=== PATIENT | male | born 1975 | race Caucasian/White ===

== ENCOUNTER 2018-08-29 09:39 | Day surgery (SDC) | payer MEDICARE, BC ==
--- NOTE | 2018-08-29 08:11 | HP ---
DATE OF SURGERY: 08/29/2018 HISTORY OF PRESENT ILLNESS: The patient is a 43 year-old with some increased aches and pain over posterior left leg question cyst or other etiology. Desires excision. PAST MEDICAL HISTORY: Glaucoma. Hypertension. Diabetes. PAST SURGICAL HISTORY: Tip of the finger removed. Tonsils. MEDICATIONS: Enalapril, benztropine, haloperidol, lorazepam, escitalopram, Metformin, gemfibrozil, paliperidone extended release, Tamsulosin, Humalog, tolterodine, simvastatin, divalproex. ALLERGIES: SULFA. FAMILY HISTORY: Heart disease, diabetes, hypertension. SOCIAL HISTORY: No smoking or alcohol abuse. REVIEW OF SYSTEMS: Twelve systems reviewed per admission assessment. No chest pain or palpitations other systems negative or noncontributory as above and per preadmission questionnaire. PHYSICAL EXAMINATION: GENERAL: No acute distress. HEENT: Sclerae nonicteric. NECK: No JVD. CHEST: Equal excursion, nonlabored breathing. CVS: Regular rate and rhythm. ABDOMEN: Soft, nondistended. EXTREMITIES: Posterior upper leg question cyst or other nodule. Patient desires excision. Otherwise no cyanosis. NEURO: Alert, oriented, moving extremities symmetrically. IMPRESSION: Enlarging, symptomatic left lower leg cyst or nodule. The patient desires excision. I feel he is a candidate. Risks and benefits explained in detail including but not limited to bleeding or infection, risk of wound dehiscence possibly requiring packing, general risk of aches or pains, risk of nonhealing of the wound, possibility of what we excise likely will not recur but he could get similar cyst or nodule adjacent to or elsewhere on his body. He understands and agrees to the planned procedure as well as general risk of anesthesia, deep venous thrombosis, pulmonary embolism, pneumonia but not limited to, will proceed with excisional biopsy of left leg cyst or nodule as an outpatient.
[~2018-08-29 09:39] MED LIST: Lactated Ringers 1,000 ML IV ONE; Lactated Ringers 1,000 ML IV SCH; Pepcid 20 MG VIAL IV ONE; Reglan 10 MG/2 ML ONE; Sensorcaine 0.25% 10 ML ONE; Sodium Chloride 0.9% 1000 ML 1,000 ML IV SCH
[2018-08-29] MEDS ORDERED: DIPRIVAN 200 MG/20 ML IV ONE (09:40)
[2018-08-29] MEDS ORDERED: VERSED SYRUP 2 MG/ML PO ONE (10:03)
[2018-08-29] MEDS ORDERED: KEFZOL 1 GM ONE (10:59)
[2018-08-29 12:59] VITALS: O2SAT 96
[2018-08-29 13:17] VITALS: BP 102/51; PULSE 77
--- NOTE | 2018-08-30 07:52 | OP ---
SURGERY DATE/TIME: 08/29/2018 1135 PREOPERATIVE DIAGNOSIS: Persistent nodular cyst left lower extremity. POSTOPERATIVE DIAGNOSIS: Persistent nodular cyst left lower extremity, path pending. PROCEDURE: Excisional biopsy left lower extremity nodule or lipoma, path pending. SURGEON: Dr. Amaury Thakkar. ANESTHESIA: MAC. 1% lidocaine local. ESTIMATED BLOOD LOSS: Minimal. INDICATIONS: As noted above. Risks and benefits explained in detail and not limited to and consent obtained. DESCRIPTION OF PROCEDURE AND FINDINGS: The patient is taken to the operating room. Site had been confirmed and marked in the preoperative holding area. He was taken to OR. MAC anesthesia introduced. The leg prepped and draped in usual sterile fashion. Lateral position. Appropriate padding position per anesthesia and OR staff. The leg was prepped and draped in usual sterile fashion. After official time out and no disagreement with planned procedure, including a small rim of skin dissection carried circumferentially around deep to what appeared to be kind of a denser lipomatous-type density rather than just a simple cyst, this is carefully dissected off normal subcutaneous tissue and veins beneath. It is carefully passed off. It measured 1 x 1.5 cm or so, passed off for pathology. There is another small adjacent denser lipomatous density carefully freed and passed off as well. There is no other palpable nodule, cyst or any other nodules in the wound. The wound is irrigated out. Good hemostasis noted. It was then closed in layers intermediate fashion 3-0 Vicryl closing the deep and superficial subcu in interrupted fashion. Skin closed with 4-0 Vicryl running subcuticular fashion. Steri-Strips and sterile dressing applied. Patient tolerated the procedure well. There were no immediate complications. Findings discussed with the family out in the waiting area.
== END 2018-08-29 13:20 | disposition home or self-care (01) ==
LOC: SDC 09:39
PROVIDERS: ATTEND Surgery
DX: R22.42 Localized swelling, mass and lump, left lower limb (principal); L98.9 Disorder of the skin and subcutaneous tissue, unspecified; E11.9 Type 2 diabetes mellitus without complications; I10 Essential (primary) hypertension; Z79.899 Other long term (current) drug therapy
CPT/HCPCS: 82962; 88304; 88305; J0690; J2704; A9270-GY

== ENCOUNTER 2021-05-28 20:01 | Observation (INO) | payer MEDICARE, BC ==
[2021-05-28 20:39] LABS: Absolute Neutrophil Ct (ANC) 3.81 (1.4-6.9); BASOPHIL % 0.2 % (0.0-0.4); Basophil (Absolute #) 0.02 (0-0.4); Eosinophil % 2.9 % (0.00-5.0); Eosinophil (Absolute #) 0.24 (0-0.5); Hematocrit 35.8 % (42-50); Hemoglobin 12.9 gm/dl (12.5-18.0); Lymphocyte (Absolute #) 3.46 (1.0-4.6); Lymphocytes % 41.6 % (24.0-44.0); Mean Cell Volume 85.2 fl (78-100); Mean Corpuscular Hemoglobin 30.7 pg (26-32); Mean Platelet Volume 9.5 fl (7.5-11.0); Monocyte (Absolute #) 0.78 (0.0-1.3); Monocytes % 9.4 % (0.0-12.0); Neutrophil % 45.9 % (36.0-66.0); Platelet Count 268 K/mm3 (150-450); Red Cell Distribution Width 12.3 % (11.5-14.0); White Blood Count 8.3 K/mm3 (4.0-10.5)
[2021-05-28 20:49] LABS: ALBUMIN 4.4 g/dL (3.5-5.0); ALKALINE PHOSPHATASE 37 U/L (38-126); ANION GAP 14.5 MEQ/L (5-15); BLOOD UREA NITROGEN 4 mg/dL (9-20); CHLORIDE 89 mmol/L (98-107); Carbon Dioxide 24 mmol/L (22-30); Creatinine 1 0.58 mg/dL (0.66-1.25); EST GLOMERULAR FILTRATION RATE > 60.0 ML/MIN; Glucose 116 mg/dL (74-106); Potassium 4.3 mmol/L (3.5-5.1); SGOT/AST 27 U/L (17-59); SGPT/ALT 24 U/L (0-50); SODIUM 124 mmol/L (137-145); Total Protein 6.3 g/dL (6.3-8.2)
--- NOTE | 2021-05-28 20:50 | ERPHSYRPT ---
- History of Present Illness Time Seen by Provider: 05/28/21 20:10 Source: patient Exam Limitations: no limitations Patient Subjective Stated Complaint: pt mother states "He had labs drawn today and they told come to the hospital." Triage Nursing Assessment: pt ambulated into the er; pt is axo x1; c/o abnormal labs; mother states that pt had lab drawn today and derrick man office called and told pt to get to the nearest hospital; pt is sob with ambulation; mother states this is new for pt; mother states that pt has increased oral fluid intake lately; hypertensive Physician History: Patient is a 46-year-old male presents to our ED with his mother for evaluation of hyponatremia. Patient has a history of autism. Patient had outpatient labs drawn. He was found to be hyponatremic. Patient's derrick man Dr. SEGURA advised mother to bring patient to the hospital for an evaluation and treatment of hyponatremia. Patient otherwise been functioning at his baseline. Patient has not been complaining of any pain or discomfort. RN reports that patient looks somewhat winded during ambulation. Patient does not complain of any chest pain or shortness of breath. Oxygen saturation within normal limits. Timing/Duration: today Severity: moderate Modifying Factors: Improves With: nothing Associated Symptoms: denies symptoms Allergies/Adverse Reactions: Sulfa (Sulfonamide Antibiotics) Allergy (Mild, Verified 05/28/21 20:07) Hives bee venom protein (honey bee) Allergy (Verified 05/28/21 20:07) Home Medications: Bimatoprost 0.01% [Lumigan 0.01% 2.5 ml] 1 drop OP 11/03/13 [History] Divalproex Sodium [Depakote ER] 2 tab PO 11/03/13 [History] Enalapril Maleate 5 mg [Vasotec 5 MG] 40 mg PO DAILY 11/03/13 [History] Escitalopram Oxalate [Lexapro] 10 mg PO QAM 11/03/13 [History] Gemfibrozil 600 mg [Lopid 600 mg] 600 mg PO BID 11/03/13 [History] Haloperidol 5 mg [Haldol 5 MG] 10 mg PO HS 11/03/13 [History] Insulin Lispro [Humalog] 13 units SQ AC 11/03/13 [History] Lorazepam 1 mg [Ativan 1 MG] 1 mg PO TID 11/03/13 [History] Metformin HCl 850 mg [Glucophage 850 MG] 850 mg PO BID 11/03/13 [History] Benztropine Mesylate 1 mg PO BID 08/13/18 [History] Insulin Glargine,Hum.rec.anlog [Lantus] 35 unit SQ BID 08/13/18 [History] Simvastatin [Zocor] 40 mg PO HS 08/13/18 [History] Tamsulosin HCl 0.4 mg [Flomax 0.4 MG] 0.4 mg PO HS 08/13/18 [History] Tolterodine Tartrate 2 mg PO AC 08/13/18 [History] Demeclocycline HCl 300 mg PO BID 05/28/21 [History] Doxepin HCl 50 mg PO HS 05/28/21 [History] haloperidoL [Haloperidol] 5 mg PO AC 05/28/21 [History] Hx Tetanus, Diphtheria Vaccination/Date Given: Yes Hx Influenza Vaccination/Date Given: No Hx Pneumococcal Vaccination/Date Given: No Travel Risk - International Travel Have you traveled outside of the country in past 3 weeks: No - Coronavirus Screening Symptoms: Cough: New Onset, Shortness of Breath, Vomiting/Diarrhea Close contact with a COVID-19 positive Pt in past 14-21 Days: No - Vaccine Status Have you recieved a Covid-19 vaccination: Yes [employer]: Moderna - Vaccination Dates Date of 2cond Vaccination (if applicable): 09/11/20 - Review of Systems Constitutional: No Symptoms, No Fever, No Chills Eyes: No Symptoms Ears, Nose, & Throat: No Symptoms Respiratory: No Symptoms, No Cough, No Dyspnea Cardiac: No Symptoms, No Chest Pain, No Edema, No Syncope Abdominal/Gastrointestinal: No Symptoms, No Abdominal Pain, No Nausea, No Vomiting, No Diarrhea Genitourinary Symptoms: No Symptoms, No Dysuria Musculoskeletal: No Symptoms, No Back Pain, No Neck Pain Skin: No Symptoms, No Rash Neurological: No Symptoms, No Dizziness, No Focal Weakness, No Sensory Changes Psychological: No Symptoms Endocrine: No Symptoms Hematologic/Lymphatic: No Symptoms Immunological/Allergic: No Symptoms All Other Systems: Reviewed and Negative - Past Medical History Pertinent Past Medical History: Yes Neurological History: Other ENT History: Glaucoma Cardiac History: Hypertension Respiratory History: Sleep Apnea Endocrine Medical History: Diabetes Type II Musculoskeletal History: No Pertinent History GI Medical History: No Pertinent History History: No Pertinent History Psycho-Social History: Other Male Reproductive Disorders: No Pertinent History Other Medical History: AUTISM. refuses c-pap - Past Surgical History Past Surgical History: Yes Neuro Surgical History: No Pertinent History Cardiac: No Pertinent History Respiratory: No Pertinent History Gastrointestinal: No Pertinent History Genitourinary: No Pertinent History Musculoskeletal: No Pertinent History Male Surgical History: No Pertinent History Other Surgical History: TONSILECTOMY. tip of finger removed right hand. cyst removed from behind left knee - Social History Smoking Status: Never smoker Exposure to second hand smoke: No Drug Use: none Patient Lives Alone: No - Nursing Vital Signs Nursing Vital Signs: Initial Vital Signs Temperature 99 F 05/28/21 20:07 Pulse Rate 88 05/28/21 20:07 Respiratory Rate 24 05/28/21 20:07 Blood Pressure 143/96 05/28/21 20:07 O2 Sat by Pulse Oximetry 97 05/28/21 20:07 Pain Scale Pain Intensity 0 - Physical Exam General Appearance: no apparent distress, alert Eye Exam: PERRL/EOMI, eyes nml inspection Ears, Nose, Throat Exam: normal ENT inspection, TMs normal, pharynx normal, moist mucous membranes Neck Exam: normal inspection, non-tender, supple, full range of motion Respiratory Exam: normal breath sounds, lungs clear, airway intact, No respiratory distress Cardiovascular Exam: regular rate/rhythm, normal heart sounds, normal peripheral pulses Gastrointestinal/Abdomen Exam: soft, normal bowel sounds, No tenderness, No mass Back Exam: normal inspection, normal range of motion, No CVA tenderness, No vertebral tenderness Extremity Exam: normal inspection, normal range of motion, pelvis stable Neurologic Exam: alert (Patient has a history of autism and is listening answers to questions is difficult. However patient appears to be functioning at his baseline per his mother who is also his primary caregiver), cooperative, normal mood/affect, sensation nml, No motor deficits Skin Exam: normal color, warm, dry, No rash Lymphatic Exam: No adenopathy SpO2 Interpretation: normal SpO2: 97 O2 Delivery: Room Air - Course Nursing assessment & vital signs reviewed: Yes - Radiology Exams Chest X-ray Interpretation: Interpreted by me (Focal eventration of right hemidiaphragm. Heart lungs and bony thorax otherwise intact.) Ordered Tests: Active Orders 24 hr Category Date Time Status Iv Rn STAT Care 05/28/21 20:23 Active Pulse Oximetry (ED) STAT Care 05/28/21 20:22 Active CHEST 1 VIEW (PORTABLE) Stat Exams 05/28/21 21:26 Taken CBC W DIFF Stat Lab 05/28/21 20:15 Completed CMP Stat Lab 05/28/21 20:15 Completed UA W/RFX UR CULTURE Stat Lab 05/28/21 20:59 Completed Medication Summary Generic Name Dose Route Start Last Admin Trade Name Freq PRN Reason Stop Dose Admin Sodium Chloride 1,000 mls @ 100 mls/hr 05/28/21 21:30 05/28/21 21:25 Sodium Chloride 0.45% 1000 Ml IV 06/27/21 21:29 100 mls/hr .Q10H MISHEL Administration Discontinued Medications Generic Name Dose Route Start Last Admin Trade Name Freq PRN Reason Stop Dose Admin Sodium Chloride Confirm 05/28/21 21:18 Sodium Chloride 0.9% 1000 Ml Administered 05/28/21 21:19 Dose 1,000 mls @ ud .ROUTE .STK-MED ONE Oral Electrolytes 1,000 ml 05/28/21 21:28 05/28/21 21:29 Electrolyte,Oral 1000 Ml Bottle (Pedialyte) PO 05/28/21 21:29 1,000 ml STAT ONE Administration Oral Electrolytes Confirm 05/28/21 21:29 Electrolyte,Oral 1000 Ml Bottle (Pedialyte) Administered 05/28/21 21:30 Dose 1,000 ml .ROUTE .STK-MED ONE Lab/Rad Data: Laboratory Result Diagrams 05/28/21 20:15 05/28/21 20:15 Laboratory Results 05/28/21 05/28/21 05/28/21 Range/Units 21:37 20:59 20:15 WBC (4.0-10.5) K/mm3 RBC (4.1-5.6) M/mm3 Hgb (12.5-18.0) gm/dl Hct (42-50) % MCV (78-100) fl MCH (26-32) pg MCHC (32-36) g/dl RDW (11.5-14.0) % Plt Count (150-450) K/mm3 MPV (7.5-11.0) fl Gran % (36.0-66.0) % Eos # (Auto) (0-0.5) Absolute Lymphs (auto) (1.0-4.6) Absolute Monos (auto) (0.0-1.3) Lymphocytes % (24.0-44.0) % Monocytes % (0.0-12.0) % Eosinophils % (0.00-5.0) % Basophils % (0.0-0.4) % Absolute Granulocytes (1.4-6.9) Basophils # (0-0.4) Sodium 124 L (137-145) mmol/L Potassium 4.3 (3.5-5.1) mmol/L Chloride 89 L (98-107) mmol/L Carbon Dioxide 24 (22-30) mmol/L Anion Gap 14.5 (5-15) MEQ/L BUN 4 L (9-20) mg/dL Creatinine 0.58 L (0.66-1.25) mg/dL Estimated GFR > 60.0 ML/MIN Glucose 116 H (74-106) mg/dL Calcium 9.0 (8.4-10.2) mg/dL Total Bilirubin 0.50 (0.2-1.3) mg/dL AST 27 (17-59) U/L ALT 24 (0-50) U/L Alkaline Phosphatase 37 L (38-126) U/L Serum Total Protein 6.3 (6.3-8.2) g/dL Albumin 4.4 (3.5-5.0) g/dL Urine Color STRAW (YELLOW) Urine Appearance CLEAR (CLEAR) Urine pH 8.0 (5-6) Ur Specific [place] 1.002 (1.005-1.025) Urine Protein NEGATIVE (Negative) Urine Ketones NEGATIVE (NEGATIVE) Urine Blood NEGATIVE (0-5) Wes/ul Urine Nitrite NEGATIVE (NEGATIVE) Urine Bilirubin NEGATIVE (NEGATIVE) Urine Urobilinogen NEGATIVE (0-1) mg/dL Ur Leukocyte Esterase NEGATIVE (NEGATIVE) Urine WBC (Auto) NONE SEEN (0-5) /HPF Urine RBC (Auto) NONE SEEN (0-2) /HPF U Epithel Cells (Auto) NONE (FEW) /HPF Urine Bacteria (Auto) NONE SEEN (NEGATIVE) /HPF Urine Mucus (Auto) SLIGHT (NEGATIVE) /HPF Urine Culture Reflexed NO (NO) Urine Glucose NEGATIVE (NEGATIVE) mg/dL Influenza Type A Ag NEGATIVE (NEGATIVE) Influenza Type B Ag NEGATIVE (NEGATIVE) RSV (PCR) NEGATIVE (Negative) SARS-CoV-2 (PCR) NEGATIVE (NEGATIVE) 05/28/21 Range/Units 20:15 WBC 8.3 (4.0-10.5) K/mm3 RBC 4.20 (4.1-5.6) M/mm3 Hgb 12.9 (12.5-18.0) gm/dl Hct 35.8 L (42-50) % MCV 85.2 (78-100) fl MCH 30.7 (26-32) pg MCHC 36.0 (32-36) g/dl RDW 12.3 (11.5-14.0) % Plt Count 268 (150-450) K/mm3 MPV 9.5 (7.5-11.0) fl Gran % 45.9 (36.0-66.0) % Eos # (Auto) 0.24 (0-0.5) Absolute Lymphs (auto) 3.46 (1.0-4.6) Absolute Monos (auto) 0.78 (0.0-1.3) Lymphocytes % 41.6 (24.0-44.0) % Monocytes % 9.4 (0.0-12.0) % Eosinophils % 2.9 (0.00-5.0) % Basophils % 0.2 (0.0-0.4) % Absolute Granulocytes 3.81 (1.4-6.9) Basophils # 0.02 (0-0.4) Sodium (137-145) mmol/L Potassium (3.5-5.1) mmol/L Chloride (98-107) mmol/L Carbon Dioxide (22-30) mmol/L Anion Gap (5-15) MEQ/L BUN (9-20) mg/dL Creatinine (0.66-1.25) mg/dL Estimated GFR ML/MIN Glucose (74-106) mg/dL Calcium (8.4-10.2) mg/dL Total Bilirubin (0.2-1.3) mg/dL AST (17-59) U/L ALT (0-50) U/L Alkaline Phosphatase (38-126) U/L Serum Total Protein (6.3-8.2) g/dL Albumin (3.5-5.0) g/dL Urine Color (YELLOW) Urine Appearance (CLEAR) Urine pH (5-6) Ur Specific [place] (1.005-1.025) Urine Protein (Negative) Urine Ketones (NEGATIVE) Urine Blood (0-5) Wes/ul Urine Nitrite (NEGATIVE) Urine Bilirubin (NEGATIVE) Urine Urobilinogen (0-1) mg/dL Ur Leukocyte Esterase (NEGATIVE) Urine WBC (Auto) (0-5) /HPF Urine RBC (Auto) (0-2) /HPF U Epithel Cells (Auto) (FEW) /HPF Urine Bacteria (Auto) (NEGATIVE) /HPF Urine Mucus (Auto) (NEGATIVE) /HPF Urine Culture Reflexed (NO) Urine Glucose (NEGATIVE) mg/dL Influenza Type A Ag (NEGATIVE) Influenza Type B Ag (NEGATIVE) RSV (PCR) (Negative) SARS-CoV-2 (PCR) (NEGATIVE) - Progress Progress: improved Progress Note: Patient is hyponatremic. It is likely due to dilution from polydipsia. I spoke to Dr. Nye who feels that patient would be appropriate for discharge as long as he decreases his intake of water. Patient's mother is the primary provider. She states that she does not feel comfortable with this plan. She states that she will not be able to stop patient from drinking water at home. We will perform a Covid test admit patient to our hospital. 05/28/21 21:22 Covid test negative. Will admit to floor. Portions of this note were created with voice recognition technology. There may be grammatical, spelling, punctuation or sound alike errors 05/28/21 22:49 Discussed with : Gianni Will see patient in: hospital (observation) Counseled pt/family regarding: lab results, diagnosis - Departure Departure Disposition: Observation Clinical Impression: Hyponatremia, Polydipsia Condition: Stable Critical Care Time: No Referrals: ROLANDO GARZA [Primary Care Provider] - Follow up/PCP as directed
[2021-05-28 21:16] LABS: Appearance CLEAR (CLEAR); Bilirubin NEGATIVE (NEGATIVE); Blood NEGATIVE Ery/ul (0-5); Glucose NEGATIVE (NEGATIVE); Ketones NEGATIVE (NEGATIVE); Leukocyte Esterase NEGATIVE (NEGATIVE); Mucus SLIGHT /HPF (NEGATIVE); Nitrite NEGATIVE (NEGATIVE); Protein,Urine Dip NEGATIVE (Negative); Specific Gravity 1.002 (1.005-1.025); Urobilinogen NEGATIVE mg/dL (0-1)
[2021-05-28] MEDS ORDERED: Sodium Chloride 0.9% 1000 ML 0 ML ONE (21:18)
[2021-05-28 21:26] LABS: Bacteria NONE SEEN /HPF (NEGATIVE); RBC NONE SEEN /HPF (0-2); WBC NONE SEEN /HPF (0-5)
[2021-05-28] MEDS ORDERED: Pedialyte PO ONE (21:28)
[2021-05-28] MEDS ORDERED: Pedialyte ONE (21:29)
[2021-05-28 22:39] LABS: INFLUENZA A NEGATIVE (NEGATIVE); INFLUENZA B NEGATIVE (NEGATIVE); RESPIRATORY SYNCTIAL VIRUS NEGATIVE (Negative); SARS-CoV-2 Xpert Express NEGATIVE (NEGATIVE)
[2021-05-28] MEDS ORDERED: MORPHINE SULFATE 2 MG INJ IV PRN (22:57)
[2021-05-29 06:02] LABS: Absolute Neutrophil Ct (ANC) 2.66 (1.4-6.9); BASOPHIL % 0.5 % (0.0-0.4); Basophil (Absolute #) 0.03 (0-0.4); Eosinophil (Absolute #) 0.19 (0-0.5); Hematocrit 38.2 % (42-50); Hemoglobin 13.3 gm/dl (12.5-18.0); Lymphocyte (Absolute #) 2.93 (1.0-4.6); Lymphocytes % 45.6 % (24.0-44.0); Mean Cell Volume 87.6 fl (78-100); Mean Corpuscular Hemoglobin 30.5 pg (26-32); Mean Corpuscular Hgb Concent. 34.8 g/dl (32-36); Mean Platelet Volume 9.5 fl (7.5-11.0); Monocyte (Absolute #) 0.61 (0.0-1.3); Monocytes % 9.5 % (0.0-12.0); Neutrophil % 41.4 % (36.0-66.0); Platelet Count 277 K/mm3 (150-450); Red Blood Count 4.36 M/mm3 (4.1-5.6); Red Cell Distribution Width 12.7 % (11.5-14.0); White Blood Count 6.4 K/mm3 (4.0-10.5)
[2021-05-29 06:48] LABS: ALBUMIN 4.1 g/dL (3.5-5.0); ALKALINE PHOSPHATASE 35 U/L (38-126); BLOOD UREA NITROGEN 6 mg/dL (9-20); CHLORIDE 98 mmol/L (98-107); Calcium 8.5 mg/dL (8.4-10.2); Carbon Dioxide 26 mmol/L (22-30); Creatinine 1 0.52 mg/dL (0.66-1.25); EST GLOMERULAR FILTRATION RATE > 60.0 ML/MIN; Glucose 119 mg/dL (74-106); Potassium 4.4 mmol/L (3.5-5.1); SGOT/AST 28 U/L (17-59); SGPT/ALT 25 U/L (0-50); SODIUM 131 mmol/L (137-145); Total Protein 6.2 g/dL (6.3-8.2)
[2021-05-29] MEDS: Sodium Chloride 0.9% 1000 ML 1,000 ML IV SCH ×2 (07:10→16:29)
[2021-05-29] MEDS ORDERED: Sodium Chloride 0.9% 1000 ML 1,000 ML ONE (07:11)
--- NOTE | 2021-05-29 08:45 | PCM.HP ---
History of Present Illness - Chief Complaint Chief Complaint: hyponatremia History of Present Illness: is a 46 year old male with a history of autism that was seen by Dr Stubbs and had labs yesterday, his sodium was 124 and he was directed to the ER. History is limited from [place] due to severe autism but he is in no distress and cooperative this morning, his mother is his primary caregiver and she notes no changes from baseline, he does not seem to have any headache, visual changes or other complaints related to his low sodium. He has psychogenic polydipsia and drinks water excessively according to his mother. - Review of Systems All Other Systems: Unable due to condition Medications & Allergies Home Medications: Home Medication List Bimatoprost 0.01% [Lumigan 0.01% 2.5 ml] 1 drop OP HS 11/03/13 [History Confirmed 05/28/21] Divalproex Sodium [Depakote ER] 2 tab PO HS 11/03/13 [History Confirmed 05/28/21] Enalapril Maleate 5 mg [Vasotec 5 MG] 40 mg PO DAILY 11/03/13 [History C onfirmed 05/28/21] Escitalopram Oxalate [Lexapro] 10 mg PO QAM 11/03/13 [History Confirmed 05/28/21] Gemfibrozil 600 mg [Lopid 600 mg] 600 mg PO BID 11/03/13 [History Confirmed 05/28/21] Haloperidol 5 mg [Haldol 5 MG] 10 mg PO HS 11/03/13 [History Confirmed 05/28/21] Insulin Lispro [Humalog] 13 units SQ AC 11/03/13 [History Confirmed 05/28/21] Lorazepam 1 mg [Ativan 1 MG] 1 mg PO TID 11/03/13 [History Confirmed 05/28/21] Metformin HCl 850 mg [Glucophage 850 MG] 850 mg PO BID 11/03/13 [History Confirmed 05/28/21] Benztropine Mesylate 1 mg PO BID 08/13/18 [History Confirmed 05/28/21] Insulin Glargine,Hum.rec.anlog [Lantus] 35 unit SQ BID 08/13/18 [History Confirmed 05/28/21] Simvastatin [Zocor] 40 mg PO HS 08/13/18 [History Confirmed 05/28/21] Tamsulosin HCl 0.4 mg [Flomax 0.4 MG] 0.4 mg PO HS 08/13/18 [History Confirmed 05/28/21] Tolterodine Tartrate 2 mg PO AC 08/13/18 [History Confirmed 05/28/21] Demeclocycline HCl 300 mg PO BID 05/28/21 [History Confirmed 05/28/21] Doxepin HCl 50 mg PO HS 05/28/21 [History Confirmed 05/28/21] haloperidoL [Haloperidol] 5 mg PO AC 05/28/21 [History Confirmed 05/28/21] Allergies/Adverse Reactions: Allergies Allergy/AdvReac Type Severity Reaction Status Date / Time Sulfa (Sulfonamide Allergy Mild Hives Verified 05/28/21 20:07 Antibiotics) bee venom protein (honey bee) Allergy Verified 05/28/21 20:07 - Past Medical History Past Medical History: Yes Neurological History: Other ENT History: Glaucoma Cardiac History: Hypertension Respiratory History: Sleep Apnea Endocrine Medical History: Diabetes Type II Musculoskelatal History: No Pertinent History GI Medical History: No Pertinent History History: No Pertinent History Pyscho-Social History: Other Male Reproductive Disorders: No Pertinent History Comment: AUTISM - Past Surgical History Past Surgical History: Yes Neuro Surgical History: No Pertinent History Cardiac History: No Pertinent History Respiratory Surgery: No Pertinent History GI Surgical History: No Pertinent History Genitourinary Surgical Hx: No Pertinent History Musculskeletal Surgical Hx: No Pertinent History Male Surgical History: No Pertinent History Other Surgical History: TONSILECTOMY. tip of finger removed right hand. cyst removed from behind left knee - Social History Smoking Status: Never smoker Exposure to second hand smoke: No Alcohol: None Drug Use: none - Physical Exam Vital Signs: Vital Signs - 24 hr Temp Pulse Resp BP Pulse Ox 05/29/21 07:43 18 05/29/21 07:23 98.2 F 72 18 144/95 98 05/29/21 04:00 97.1 F 75 16 99/68 97 05/28/21 23:35 98.3 F 80 22 158/87 97 05/28/21 23:34 98.3 F 80 22 158/87 97 05/28/21 23:19 98.3 F 80 22 158/87 97 05/28/21 22:59 79 18 115/53 95 05/28/21 22:57 97 05/28/21 22:54 97 05/28/21 22:40 72 18 115/53 96 05/28/21 21:06 72 129/54 95 05/28/21 20:47 95 05/28/21 20:07 99 F 88 24 143/96 97 General Appearance: no apparent distress, alert, obese Neurologic Exam: alert, oriented x 3 Respiratory Exam: normal breath sounds, lungs clear, No respiratory distress Cardiovascular Exam: regular rate/rhythm, normal heart sounds, normal peripheral pulses Gastrointestinal/Abdomen Exam: soft, normal bowel sounds, No tenderness, No mass Extremity Exam: normal inspection, normal range of motion, pelvis stable Skin Exam: normal color, warm, dry, No rash Results - Labs Lab/Micro Results: Lab Results-Last 24 Hours 05/28/21 05/28/21 05/28/21 Range/Units 20:15 20:15 20:59 WBC 8.3 (4.0-10.5) K/mm3 RBC 4.20 (4.1-5.6) M/mm3 Hgb 12.9 (12.5-18.0) gm/dl Hct 35.8 L (42-50) % MCV 85.2 (78-100) fl MCH 30.7 (26-32) pg MCHC 36.0 (32-36) g/dl RDW 12.3 (11.5-14.0) % Plt Count 268 (150-450) K/mm3 MPV 9.5 (7.5-11.0) fl Gran % 45.9 (36.0-66.0) % Eos # (Auto) 0.24 (0-0.5) Absolute Lymphs (auto) 3.46 (1.0-4.6) Absolute Monos (auto) 0.78 (0.0-1.3) Lymphocytes % 41.6 (24.0-44.0) % Monocytes % 9.4 (0.0-12.0) % Eosinophils % 2.9 (0.00-5.0) % Basophils % 0.2 (0.0-0.4) % Absolute Granulocytes 3.81 (1.4-6.9) Basophils # 0.02 (0-0.4) Sodium 124 L (137-145) mmol/L Potassium 4.3 (3.5-5.1) mmol/L Chloride 89 L (98-107) mmol/L Carbon Dioxide 24 (22-30) mmol/L Anion Gap 14.5 (5-15) MEQ/L BUN 4 L (9-20) mg/dL Creatinine 0.58 L (0.66-1.25) mg/dL Estimated GFR > 60.0 ML/MIN Glucose 116 H (74-106) mg/dL POC Glucometer (74 to 106) mg/dL Calcium 9.0 (8.4-10.2) mg/dL Total Bilirubin 0.50 (0.2-1.3) mg/dL AST 27 (17-59) U/L ALT 24 (0-50) U/L Alkaline Phosphatase 37 L (38-126) U/L Serum Total Protein 6.3 (6.3-8.2) g/dL Albumin 4.4 (3.5-5.0) g/dL Urine Color STRAW (YELLOW) Urine Appearance CLEAR (CLEAR) Urine pH 8.0 (5-6) Ur Specific Kane 1.002 (1.005-1.025) Urine Protein NEGATIVE (Negative) Urine Ketones NEGATIVE (NEGATIVE) Urine Blood NEGATIVE (0-5) Wes/ul Urine Nitrite NEGATIVE (NEGATIVE) Urine Bilirubin NEGATIVE (NEGATIVE) Urine Urobilinogen NEGATIVE (0-1) mg/dL Ur Leukocyte Esterase NEGATIVE (NEGATIVE) Urine WBC (Auto) NONE SEEN (0-5) /HPF Urine RBC (Auto) NONE SEEN (0-2) /HPF U Epithel Cells (Auto) NONE (FEW) /HPF Urine Bacteria (Auto) NONE SEEN (NEGATIVE) /HPF Urine Mucus (Auto) SLIGHT (NEGATIVE) /HPF Urine Culture Reflexed NO (NO) Urine Glucose NEGATIVE (NEGATIVE) mg/dL Influenza Type A Ag (NEGATIVE) Influenza Type B Ag (NEGATIVE) RSV (PCR) (Negative) SARS-CoV-2 (PCR) (NEGATIVE) 05/28/21 05/28/21 05/29/21 Range/Units 21:37 22:47 06:00 WBC 6.4 (4.0-10.5) K/mm3 RBC 4.36 (4.1-5.6) M/mm3 Hgb 13.3 (12.5-18.0) gm/dl Hct 38.2 L (42-50) % MCV 87.6 (78-100) fl MCH 30.5 (26-32) pg MCHC 34.8 (32-36) g/dl RDW 12.7 (11.5-14.0) % Plt Count 277 (150-450) K/mm3 MPV 9.5 (7.5-11.0) fl Gran % 41.4 (36.0-66.0) % Eos # (Auto) 0.19 (0-0.5) Absolute Lymphs (auto) 2.93 (1.0-4.6) Absolute Monos (auto) 0.61 (0.0-1.3) Lymphocytes % 45.6 H (24.0-44.0) % Monocytes % 9.5 (0.0-12.0) % Eosinophils % 3.0 (0.00-5.0) % Basophils % 0.5 (0.0-0.4) % Absolute Granulocytes 2.66 (1.4-6.9) Basophils # 0.03 (0-0.4) Sodium (137-145) mmol/L Potassium (3.5-5.1) mmol/L Chloride (98-107) mmol/L Carbon Dioxide (22-30) mmol/L Anion Gap (5-15) MEQ/L BUN (9-20) mg/dL Creatinine (0.66-1.25) mg/dL Estimated GFR ML/MIN Glucose (74-106) mg/dL POC Glucometer 128 H (74 to 106) mg/dL Calcium (8.4-10.2) mg/dL Total Bilirubin (0.2-1.3) mg/dL AST (17-59) U/L ALT (0-50) U/L Alkaline Phosphatase (38-126) U/L Serum Total Protein (6.3-8.2) g/dL Albumin (3.5-5.0) g/dL Urine Color (YELLOW) Urine Appearance (CLEAR) Urine pH (5-6) Ur Specific Kane (1.005-1.025) Urine Protein (Negative) Urine Ketones (NEGATIVE) Urine Blood (0-5) Wes/ul Urine Nitrite (NEGATIVE) Urine Bilirubin (NEGATIVE) Urine Urobilinogen (0-1) mg/dL Ur Leukocyte Esterase (NEGATIVE) Urine WBC (Auto) (0-5) /HPF Urine RBC (Auto) (0-2) /HPF U Epithel Cells (Auto) (FEW) /HPF Urine Bacteria (Auto) (NEGATIVE) /HPF Urine Mucus (Auto) (NEGATIVE) /HPF Urine Culture Reflexed (NO) Urine Glucose (NEGATIVE) mg/dL Influenza Type A Ag NEGATIVE (NEGATIVE) Influenza Type B Ag NEGATIVE (NEGATIVE) RSV (PCR) NEGATIVE (Negative) SARS-CoV-2 (PCR) NEGATIVE (NEGATIVE) 05/29/21 05/29/21 Range/Units 06:00 07:11 WBC (4.0-10.5) K/mm3 RBC (4.1-5.6) M/mm3 Hgb (12.5-18.0) gm/dl Hct (42-50) % MCV (78-100) fl MCH (26-32) pg MCHC (32-36) g/dl RDW (11.5-14.0) % Plt Count (150-450) K/mm3 MPV (7.5-11.0) fl Gran % (36.0-66.0) % Eos # (Auto) (0-0.5) Absolute Lymphs (auto) (1.0-4.6) Absolute Monos (auto) (0.0-1.3) Lymphocytes % (24.0-44.0) % Monocytes % (0.0-12.0) % Eosinophils % (0.00-5.0) % Basophils % (0.0-0.4) % Absolute Granulocytes (1.4-6.9) Basophils # (0-0.4) Sodium 131 L D (137-145) mmol/L Potassium 4.4 (3.5-5.1) mmol/L Chloride 98 (98-107) mmol/L Carbon Dioxide 26 (22-30) mmol/L Anion Gap 11.0 (5-15) MEQ/L BUN 6 L (9-20) mg/dL Creatinine 0.52 L (0.66-1.25) mg/dL Estimated GFR > 60.0 ML/MIN Glucose 119 H (74-106) mg/dL POC Glucometer 127 H (74 to 106) mg/dL Calcium 8.5 (8.4-10.2) mg/dL Total Bilirubin 0.40 (0.2-1.3) mg/dL AST 28 (17-59) U/L ALT 25 (0-50) U/L Alkaline Phosphatase 35 L (38-126) U/L Serum Total Protein 6.2 L (6.3-8.2) g/dL Albumin 4.1 (3.5-5.0) g/dL Urine Color (YELLOW) Urine Appearance (CLEAR) Urine pH (5-6) Ur Specific Kane (1.005-1.025) Urine Protein (Negative) Urine Ketones (NEGATIVE) Urine Blood (0-5) Wes/ul Urine Nitrite (NEGATIVE) Urine Bilirubin (NEGATIVE) Urine Urobilinogen (0-1) mg/dL Ur Leukocyte Esterase (NEGATIVE) Urine WBC (Auto) (0-5) /HPF Urine RBC (Auto) (0-2) /HPF U Epithel Cells (Auto) (FEW) /HPF Urine Bacteria (Auto) (NEGATIVE) /HPF Urine Mucus (Auto) (NEGATIVE) /HPF Urine Culture Reflexed (NO) Urine Glucose (NEGATIVE) mg/dL Influenza Type A Ag (NEGATIVE) Influenza Type B Ag (NEGATIVE) RSV (PCR) (Negative) SARS-CoV-2 (PCR) (NEGATIVE) - Radiology Impressions Radiology Exams & Impressions: Radiology Procedures Category Date Time Status CHEST 1 VIEW (PORTABLE) Stat Exams 05/28/21 21:26 Taken Assessment/Plan (1) Hyponatremia Current Visit: Yes Status: Acute Assessment & Plan: improved with normal saline and fluid restriction, will involve Dr Stubbs, mom does not feel she will be able to effectively limit fluid intake at home. Code(s): E87.1 - HYPO-OSMOLALITY AND HYPONATREMIA (2) Polydipsia Current Visit: Yes Status: Acute Assessment & Plan: psych related, no obvious easy fix at this time. Code(s): R63.1 - POLYDIPSIA (3) Autism Current Visit: Yes Status: Acute Code(s): F84.0 - AUTISTIC DISORDER (4) Diabetes mellitus Current Visit: Yes Status: Acute Code(s): E11.9 - TYPE 2 DIABETES MELLITUS WITHOUT COMPLICATIONS
--- NOTE | 2021-05-29 08:56 | XRAY ---
Indication: Short of breath. Comparison: July 06, 2018. Portable chest again demonstrates normal heart, lungs, and bony thorax with incidental focal eventration right hemidiaphragm.
[2021-05-29] MEDS ORDERED: Lexapro 10 MG PO SCH (10:00)
[2021-05-29] MEDS ORDERED: DEMECLOCYCLINE HCL 300 MG PO SCH (10:00)
[2021-05-29] MEDS ORDERED: NON-FORMULARY ITEM (Escitalopram Oxalate [Lexapro] 20 MG Tablet) PO SCH (10:00)
[2021-05-29] MEDS ORDERED: Vasotec 5 MG PO SCH (10:00)
[2021-05-29] MEDS ORDERED: BENZTROPINE MESYLATE 1 MG PO SCH (10:00)
[2021-05-29] MEDS ORDERED: MEDICATION INTERVENTION MC SCH (10:00)
[2021-05-29] MEDS ORDERED: Vasotec 10 MG PO SCH (10:00)
[2021-05-29] MEDS: Ativan 1 MG PO SCH ×3 (10:27→21:08)
[2021-05-29] MEDS: Glucophage 850 MG PO SCH ×2 (10:28→16:55)
[2021-05-29] MEDS: COGENTIN 0.5 MG PO SCH ×2 (10:28→21:06)
[2021-05-29] MEDS: Lantus Insulin SQ SCH ×2 (10:28→21:09)
[2021-05-29] MEDS: LOPID 600 MG PO SCH ×2 (10:29→21:08)
[2021-05-29] MEDS: Ditropan 5 MG PO SCH ×2 (11:17→16:55)
[2021-05-29] MEDS: HUMALOG SQ SCH ×2 (11:18→16:57)
[2021-05-29] MEDS ORDERED: NON-FORMULARY ITEM (Insulin Lispro 100 UNIT/ML Ml) SQ SCH (11:30)
[2021-05-29] MEDS ORDERED: Haldol 5 MG PO SCH ×2 (11:30→22:00)
[2021-05-29] MEDS ORDERED: TOLTERODINE TARTRATE 2 MG PO SCH (11:30)
[2021-05-29] MEDS: Haldol 5 MG PO SCH (14:31)
[2021-05-29] MEDS: PATIENT OWN MEDICATION PO SCH (19:29)
[2021-05-29] MEDS ORDERED: Flomax 0.4 MG PO SCH (22:00)
[2021-05-29] MEDS ORDERED: NON-FORMULARY ITEM (Simvastatin [Zocor] 40 MG Tablet) PO SCH (22:00)
[2021-05-29] MEDS ORDERED: Depakote EXTENDED RELEASE 250 MG PO SCH (22:00)
[2021-05-29] MEDS ORDERED: DOXEPIN HCL PO SCH (22:00)
[2021-05-29] MEDS ORDERED: LUMIGAN 0.01% 2.5 ML OP SCH (22:00)
[2021-05-29] MEDS ORDERED: ZOCOR 20MG PO SCH (22:00)
[2021-05-29] MEDS ORDERED: DOXEPIN HCL 50 MG PO SCH (22:00)
[2021-05-29] MEDS ORDERED: DIVALPROEX SODIUM 500 MG PO SCH (22:00)
[2021-05-30] MEDS: Sodium Chloride 0.9% 1000 ML 1,000 ML IV SCH (02:29)
[2021-05-30 04:31] VITALS: PULSE 85
[2021-05-30 05:22] LABS: Absolute Neutrophil Ct (ANC) 2.64 (1.4-6.9); BASOPHIL % 0.2 % (0.0-0.4); Basophil (Absolute #) 0.01 (0-0.4); Eosinophil % 2.3 % (0.00-5.0); Eosinophil (Absolute #) 0.14 (0-0.5); Hematocrit 36.7 % (42-50); Hemoglobin 12.6 gm/dl (12.5-18.0); Lymphocyte (Absolute #) 2.65 (1.0-4.6); Lymphocytes % 43.9 % (24.0-44.0); Mean Cell Volume 89.5 fl (78-100); Mean Corpuscular Hemoglobin 30.7 pg (26-32); Mean Corpuscular Hgb Concent. 34.3 g/dl (32-36); Mean Platelet Volume 9.1 fl (7.5-11.0); Monocytes % 9.9 % (0.0-12.0); Neutrophil % 43.7 % (36.0-66.0); Platelet Count 251 K/mm3 (150-450); Red Cell Distribution Width 12.9 % (11.5-14.0)
[2021-05-30 05:47] LABS: ANION GAP 13.9 MEQ/L (5-15); BLOOD UREA NITROGEN 8 mg/dL (9-20); CHLORIDE 103 mmol/L (98-107); Calcium 8.6 mg/dL (8.4-10.2); Carbon Dioxide 23 mmol/L (22-30); Creatinine 1 0.55 mg/dL (0.66-1.25); EST GLOMERULAR FILTRATION RATE > 60.0 ML/MIN; Glucose 90 mg/dL (74-106); Potassium 4.4 mmol/L (3.5-5.1); SODIUM 136 mmol/L (137-145)
--- NOTE | 2021-05-30 08:09 | PCM.DS ---
Discharge Summary Date of Admission: 05/28/21 22:48 Admitting Physician: GRANT BLACK Consults: Consults on Case 05/29/21 08:48 Consult Nephrology ROUTINE Primary Care Provider: ROLANDO GARZA Allergies Allergies Sulfa (Sulfonamide Antibiotics) Allergy (Mild, Verified 05/28/21 20:07) Hives bee venom protein (honey bee) Allergy (Verified 05/28/21 20:07) Hospital Summary - Hospital Course Hospital Course: patient admitted with hyponatremia, labs for upcoming appointment with Dr Stubbs were done and sodium was 124 so they were directed to ER. has significant mental handicap and autism, there were no obvious symptoms or changes. sodium normalized with normal saline gentle hydration and fluid restriction, patient drinks copiously at home per mother his caregiver. - Vitals & Intake/Output Vital Signs: Vital Signs Temperature 98.5 F 05/30/21 04:00 Pulse Rate 85 05/30/21 04:00 Respiratory Rate 22 05/30/21 04:00 Blood Pressure 140/82 05/30/21 04:00 O2 Sat by Pulse Oximetry 98 05/30/21 04:00 Intake & Output: Intake & Output 05/27/21 05/28/21 05/29/21 05/30/21 11:59 11:59 11:59 11:59 Intake Total 671 2930 Balance 671 2930 Weight 106.3 kg - Lab Result Diagrams: 05/30/21 05:11 05/30/21 05:11 Lab Results-Last 24 Hrs: Lab Results-Last 24 Hours 05/29/21 05/29/21 05/29/21 Range/Units 11:07 15:42 20:46 WBC (4.0-10.5) K/mm3 RBC (4.1-5.6) M/mm3 Hgb (12.5-18.0) gm/dl Hct (42-50) % MCV (78-100) fl MCH (26-32) pg MCHC (32-36) g/dl RDW (11.5-14.0) % Plt Count (150-450) K/mm3 MPV (7.5-11.0) fl Gran % (36.0-66.0) % Eos # (Auto) (0-0.5) Absolute Lymphs (auto) (1.0-4.6) Absolute Monos (auto) (0.0-1.3) Lymphocytes % (24.0-44.0) % Monocytes % (0.0-12.0) % Eosinophils % (0.00-5.0) % Basophils % (0.0-0.4) % Absolute Granulocytes (1.4-6.9) Basophils # (0-0.4) Sodium (137-145) mmol/L Potassium (3.5-5.1) mmol/L Chloride (98-107) mmol/L Carbon Dioxide (22-30) mmol/L Anion Gap (5-15) MEQ/L BUN (9-20) mg/dL Creatinine (0.66-1.25) mg/dL Estimated GFR ML/MIN Glucose (74-106) mg/dL POC Glucometer 203 H 80 126 H (74 to 106) mg/dL Calcium (8.4-10.2) mg/dL 05/30/21 05/30/21 05/30/21 Range/Units 05:11 05:11 07:14 WBC 6.0 (4.0-10.5) K/mm3 RBC 4.10 (4.1-5.6) M/mm3 Hgb 12.6 (12.5-18.0) gm/dl Hct 36.7 L (42-50) % MCV 89.5 (78-100) fl MCH 30.7 (26-32) pg MCHC 34.3 (32-36) g/dl RDW 12.9 (11.5-14.0) % Plt Count 251 (150-450) K/mm3 MPV 9.1 (7.5-11.0) fl Gran % 43.7 (36.0-66.0) % Eos # (Auto) 0.14 (0-0.5) Absolute Lymphs (auto) 2.65 (1.0-4.6) Absolute Monos (auto) 0.60 (0.0-1.3) Lymphocytes % 43.9 (24.0-44.0) % Monocytes % 9.9 (0.0-12.0) % Eosinophils % 2.3 (0.00-5.0) % Basophils % 0.2 (0.0-0.4) % Absolute Granulocytes 2.64 (1.4-6.9) Basophils # 0.01 (0-0.4) Sodium 136 L (137-145) mmol/L Potassium 4.4 (3.5-5.1) mmol/L Chloride 103 (98-107) mmol/L Carbon Dioxide 23 (22-30) mmol/L Anion Gap 13.9 (5-15) MEQ/L BUN 8 L (9-20) mg/dL Creatinine 0.55 L (0.66-1.25) mg/dL Estimated GFR > 60.0 ML/MIN Glucose 90 (74-106) mg/dL POC Glucometer 93 (74 to 106) mg/dL Calcium 8.6 (8.4-10.2) mg/dL Micro Results-Entire Visit: Accuchecks Date 05/29/21 - Radiology Exams Ordered Rad Exams-Entire Visit: Radiology Procedures Category Date Time Status CHEST 1 VIEW (PORTABLE) Stat Exams 05/28/21 21:26 Completed Discharge Exam General Appearance: no apparent distress, alert, other Neurologic Exam: alert, cooperative, normal mood/affect, nml cerebellar function, sensation nml, No motor deficits Respiratory Exam: normal breath sounds, lungs clear, No respiratory distress Cardiovascular Exam: regular rate/rhythm, normal heart sounds Gastrointestinal/Abdomen Exam: soft, No tenderness, No mass Final Diagnosis/Problem List - Final Discharge Diagnosis/Problem (1) Hyponatremia Current Visit: Yes Status: Acute Assessment & Plan: resolved, advised to try and avoid copious water intake, try some sports drinks at home and will see Dr Stubbs next week in [place] as scheduled. Code(s): E87.1 - HYPO-OSMOLALITY AND HYPONATREMIA (2) Polydipsia Current Visit: Yes Status: Acute Code(s): R63.1 - POLYDIPSIA (3) Autism Current Visit: Yes Status: Acute Code(s): F84.0 - AUTISTIC DISORDER (4) Diabetes mellitus Current Visit: Yes Status: Acute Code(s): E11.9 - TYPE 2 DIABETES MELLITUS WITHOUT COMPLICATIONS - Discharge Disposition: Home, Self-Care Condition: Stable Prescriptions: Continue Enalapril Maleate 5 mg [Vasotec 5 MG] 40 mg PO DAILY Haloperidol 5 mg [Haldol 5 MG] 10 mg PO HS Bimatoprost 0.01% [Lumigan 0.01% 2.5 ml] 1 drop OP HS Gemfibrozil 600 mg [Lopid 600 mg] 600 mg PO BID Divalproex Sodium [Depakote ER] 2 tab PO HS Escitalopram Oxalate [Lexapro] 10 mg PO QAM Metformin HCl 850 mg [Glucophage 850 MG] 850 mg PO BID Lorazepam 1 mg [Ativan 1 MG] 1 mg PO TID Insulin Lispro [Humalog] 13 units SQ AC Tamsulosin HCl 0.4 mg [Flomax 0.4 MG] 0.4 mg PO HS Insulin Glargine,Hum.rec.anlog [Lantus] 35 unit SQ BID Benztropine Mesylate 1 mg PO BID Simvastatin [Zocor] 40 mg PO HS Tolterodine Tartrate 2 mg PO AC Demeclocycline HCl 300 mg PO BID haloperidoL [Haloperidol] 5 mg PO BID Doxepin HCl 50 mg PO HS Follow up with: ROLANDO GARZA [Primary Care Provider] - MILENA FOSTER [Family Provider] -
[2021-05-30 08:20] VITALS: BP 152/79; O2SAT 95
[2021-05-30] MEDS: Glucophage 850 MG PO SCH (08:32)
[2021-05-30] MEDS: Ditropan 5 MG PO SCH (08:33)
[2021-05-30] MEDS: HUMALOG SQ SCH (08:34)
[2021-05-30] MEDS: Haldol 5 MG PO SCH (08:38)
[2021-05-30] MEDS: PATIENT OWN MEDICATION PO SCH (09:05)
== END 2021-05-30 09:32 | disposition home or self-care (01) ==
LOC: ED 20:01 → MED SURG 22:48
PROVIDERS: ADMIT Family Medicine; ATTEND Family Medicine
DX: E87.1 Hypo-osmolality and hyponatremia (principal); R63.1 Polydipsia; F84.0 Autistic disorder; E11.9 Type 2 diabetes mellitus without complications; I10 Essential (primary) hypertension; Z79.899 Other long term (current) drug therapy; Z20.828 Contact with and (suspected) exposure to other viral communicable diseases
CPT/HCPCS: 0241U; 36415; 71045; 80048; 80053; 81001; 82947; 85025; 93041; 93268; 94760; 99285; G0378; J1817; A9270-GY

== ENCOUNTER 2021-05-31 10:57 | Observation (INO) | payer MEDICARE, BC ==
[2021-05-31] MEDS ORDERED: Sodium Chloride 0.9% 1000 ML 1,000 ML ONE (11:07)
[2021-05-31] MEDS ORDERED: Sodium Chloride 0.9% 1000 ML 1,000 ML IV STA (11:19)
[2021-05-31] MEDS ORDERED: D50W 50 ml Abboject IV ONE ×2 (11:31→11:32)
[2021-05-31 11:48] LABS: Absolute Neutrophil Ct (ANC) 5.09 (1.4-6.9); BASOPHIL % 0.1 % (0.0-0.4); Basophil (Absolute #) 0.01 (0-0.4); Eosinophil % 1.5 % (0.00-5.0); Eosinophil (Absolute #) 0.14 (0-0.5); Hematocrit 36.3 % (42-50); Hemoglobin 12.9 gm/dl (12.5-18.0); Lymphocyte (Absolute #) 2.96 (1.0-4.6); Lymphocytes % 32.3 % (24.0-44.0); Mean Cell Volume 86.6 fl (78-100); Mean Corpuscular Hemoglobin 30.8 pg (26-32); Mean Corpuscular Hgb Concent. 35.5 g/dl (32-36); Mean Platelet Volume 9.2 fl (7.5-11.0); Monocyte (Absolute #) 0.97 (0.0-1.3); Monocytes % 10.6 % (0.0-12.0); Neutrophil % 55.5 % (36.0-66.0); Platelet Count 242 K/mm3 (150-450); Red Blood Count 4.19 M/mm3 (4.1-5.6); Red Cell Distribution Width 12.4 % (11.5-14.0); White Blood Count 9.2 K/mm3 (4.0-10.5)
[2021-05-31 11:58] LABS: ACETAMINOPHEN < 10 ug/ml (10-30); ALBUMIN 4.5 g/dL (3.5-5.0); ALKALINE PHOSPHATASE 39 U/L (38-126); BLOOD UREA NITROGEN 7 mg/dL (9-20); CHLORIDE 93 mmol/L (98-107); Calcium 9.1 mg/dL (8.4-10.2); Carbon Dioxide 22 mmol/L (22-30); Creatinine 1 0.44 mg/dL (0.66-1.25); EST GLOMERULAR FILTRATION RATE > 60.0 ML/MIN; ETHYL ALCOHOL < 10 mg/dL (0-10); Glucose 51 mg/dL (74-106); MAGNESIUM 1.3 mg/dL (1.6-2.3); Potassium 3.8 mmol/L (3.5-5.1); SALICYLATE < 1.0 mg/dL (2-20); SGOT/AST 24 U/L (17-59); SGPT/ALT 22 U/L (0-50); SODIUM 128 mmol/L (137-145); Total Protein 6.6 g/dL (6.3-8.2)
[2021-05-31] MEDS: Magnesium 1 Gm / 100 Ml D5W*** 100 ML IV SCH ×2 (12:19→12:55)
--- NOTE | 2021-05-31 13:01 | ERPHSYRPT ---
- History of Present Illness Time Seen by Provider: 05/31/21 11:01 Source: patient, family Exam Limitations: clinical condition Patient Subjective Stated Complaint: Mother brought in patient due to the patient accidentally took 36 hours worth of routine po medications all at once. Triage Nursing Assessment: Patient wheeled back to ED in W/C. He is alert and answering questions appropriately but is drowsy. Patient assisted to be by staff without difficulties. Able to AMES WNL without difficulties. Apical HR regular. EKG completed; sinus rhythm. No SOB noted. Patient denies pain. Skin tone normal. Mother at bedside. Physician History: 46 years old male with history of autism, multiple psych meds, recent admission for hyponatremia is brought in the ER by mom after she noticed that he took 3 extra doses of his routine medications this morning accidentally which were in the pill container and he did not realize because he was in the hospital, discharged yesterday. Is feeling sleepy, currently awake alert and oriented, follows commands. Poison control is called, recommended EKG, BNP, supportive care and observation until patient is back to his baseline. Timing/Duration: hour(s) (3), gradual onset, worse Severity: moderate Modifying Factors: Improves With: nothing Associated Symptoms: weakness Allergies/Adverse Reactions: Sulfa (Sulfonamide Antibiotics) Allergy (Mild, Verified 05/28/21 20:07) Hives bee venom protein (honey bee) Allergy (Verified 05/28/21 20:07) Home Medications: Bimatoprost 0.01% [Lumigan 0.01% 2.5 ml] 1 drop OP HS 11/03/13 [History] Divalproex Sodium [Depakote ER] 2 tab PO 11/03/13 [History] Enalapril Maleate 5 mg [Vasotec 5 MG] 40 mg PO DAILY 11/03/13 [History] Escitalopram Oxalate [Lexapro] 10 mg PO QAM 11/03/13 [History] Gemfibrozil 600 mg [Lopid 600 mg] 600 mg PO BID 11/03/13 [History] Haloperidol 5 mg [Haldol 5 MG] 10 mg PO HS 11/03/13 [History] Insulin Lispro [Humalog] 13 units SQ AC 11/03/13 [History] Lorazepam 1 mg [Ativan 1 MG] 1 mg PO TID 11/03/13 [History] Metformin HCl 850 mg [Glucophage 850 MG] 850 mg PO BID 11/03/13 [History] Benztropine Mesylate 1 mg PO BID 08/13/18 [History] Insulin Glargine,Hum.rec.anlog [Lantus] 35 unit SQ BID 08/13/18 [History] Simvastatin [Zocor] 40 mg PO HS 08/13/18 [History] Tamsulosin HCl 0.4 mg [Flomax 0.4 MG] 0.4 mg PO HS 08/13/18 [History] Tolterodine Tartrate 2 mg PO DAILY 08/13/18 [History] Demeclocycline HCl 300 mg PO BID 05/28/21 [History] Doxepin HCl 50 mg PO HS 05/28/21 [History] haloperidoL [Haloperidol] 5 mg PO BID 05/28/21 [History] Tolvaptan 1 tab PO DAILY 05/31/21 [History] Hx Tetanus, Diphtheria Vaccination/Date Given: Yes Hx Influenza Vaccination/Date Given: No Hx Pneumococcal Vaccination/Date Given: No Immunizations Up to Date: Yes Travel Risk - International Travel Have you traveled outside of the country in past 3 weeks: No - Coronavirus Screening Are you exhibiting any of the following symptoms?: No Close contact with a COVID-19 positive Pt in past 14-21 Days: No - Vaccine Status Have you recieved a Covid-19 vaccination: Yes Rfid Strategist: Moderna - Vaccination Dates Date of 2cond Vaccination (if applicable): 09/11/20 - Review of Systems Constitutional: Fatigue, Weakness Eyes: No Symptoms Ears, Nose, & Throat: No Symptoms Respiratory: No Symptoms Cardiac: No Symptoms Abdominal/Gastrointestinal: No Symptoms Genitourinary Symptoms: No Symptoms Musculoskeletal: No Symptoms Neurological: No Symptoms Psychological: No Suicidal Ideations, No Homicidal Ideations Endocrine: No Symptoms Hematologic/Lymphatic: No Symptoms Immunological/Allergic: No Symptoms - Past Medical History Pertinent Past Medical History: Yes Neurological History: Other ENT History: Glaucoma Cardiac History: Hypertension Respiratory History: Sleep Apnea Endocrine Medical History: Diabetes Type II Musculoskeletal History: No Pertinent History GI Medical History: No Pertinent History History: No Pertinent History Psycho-Social History: Other Male Reproductive Disorders: No Pertinent History Other Medical History: AUTISM - Past Surgical History Past Surgical History: Yes Neuro Surgical History: No Pertinent History Cardiac: No Pertinent History Respiratory: No Pertinent History Gastrointestinal: No Pertinent History Genitourinary: No Pertinent History Musculoskeletal: No Pertinent History Male Surgical History: No Pertinent History Other Surgical History: TONSILECTOMY. tip of finger removed right hand. cyst removed from behind left knee - Social History Smoking Status: Never smoker Exposure to second hand smoke: No Drug Use: none Patient Lives Alone: No - Nursing Vital Signs Nursing Vital Signs: Initial Vital Signs Temperature 98 F 05/31/21 11:03 Pulse Rate 96 H 05/31/21 11:03 Respiratory Rate 20 05/31/21 11:03 Blood Pressure 150/82 05/31/21 11:03 O2 Sat by Pulse Oximetry 96 05/31/21 11:03 Pain Scale Pain Intensity 0 - Physical Exam General Appearance: no apparent distress, alert Eye Exam: PERRL/EOMI, eyes nml inspection Ears, Nose, Throat Exam: normal ENT inspection, TMs normal, pharynx normal, moist mucous membranes Neck Exam: normal inspection, non-tender, supple, full range of motion Respiratory Exam: normal breath sounds, lungs clear Cardiovascular Exam: regular rate/rhythm, normal heart sounds Gastrointestinal/Abdomen Exam: soft, normal bowel sounds, No tenderness Back Exam: normal inspection, normal range of motion Extremity Exam: normal inspection, normal range of motion Neurologic Exam: alert, oriented x 3, cooperative, design printer balloon II-XII nml as tested, sensation nml, No normal mood/affect, No motor deficits Skin Exam: normal color SpO2 Interpretation: normal SpO2: 95 O2 Delivery: Room Air - Course EKG Interpreted by Me: RATE (96), Sinus Rhythm, NORMAL AXIS, NORMAL INTERVALS, NORMAL QRS Ordered Tests: Active Orders 24 hr Category Date Time Status Bedrest ROUTINE Activity 05/31/21 13:02 Active Up With Assistance ROUTINE Activity 05/31/21 13:02 Active Code Status Order ROUTINE Care 05/31/21 13:01 Active Code Status Order ROUTINE Care 05/31/21 13:02 Completed EKG-ER Only STAT Care 05/31/21 11:19 Completed Fall Protocol ROUTINE Care 05/31/21 13:02 Completed IV Care Q6H Care 05/31/21 13:01 Completed IV Care Q6H Care 05/31/21 13:02 Active IV Insertion STAT Care 05/31/21 11:19 Active NPO (ED) STAT Care 05/31/21 11:20 Completed Neuro Checks Q1H Care 05/31/21 13:02 Completed Oxygen-ED Only Nasal Cannula 2 lpm Care 05/31/21 11:20 Completed POCT Glucose Check Q4H Care 05/31/21 11:[address] in Observation ROUTINE Care 05/31/21 13:01 Active Bud Felder, Elisa ROUTINE Care 05/31/21 13:02 Active Weight,Daily 0600 Care 05/31/21 13:02 Active Consistent Carbohydrate Diet 1800 Calorie Diet 05/31/21 Dinner Active CHEST 1 VIEW (PORTABLE) Stat Exams 05/31/21 11:20 Completed ACETAMINOPHEN Stat Lab 05/31/21 11:30 Completed CBC W DIFF AM.LAB Lab 06/01/21 04:00 Ordered CBC W DIFF Stat Lab 05/31/21 11:30 Completed CMP AM.LAB Lab 06/01/21 04:00 Ordered CMP Stat Lab 05/31/21 11:30 Completed ETHYL ALCOHOL Stat Lab 05/31/21 11:30 Completed MAGNESIUM Stat Lab 05/31/21 11:30 Completed POCT GLUCOSE Stat Lab 05/31/21 11:28 Completed POCT GLUCOSE Stat Lab 05/31/21 12:13 Completed POCT GLUCOSE Stat Lab 05/31/21 13:25 Completed SALICYLATE Stat Lab 05/31/21 11:30 Completed TROPONIN Q3H Lab 05/31/21 11:30 Completed TROPONIN Q3H Lab 05/31/21 14:10 Completed TROPONIN Q3H Lab 05/31/21 17:29 Completed TROPONIN Q3H Lab 05/31/21 20:30 Completed TROPONIN Q3H Lab 05/31/21 23:30 Ordered UA W/RFX UR CULTURE Stat Lab 05/31/21 13:03 Completed Urine Triage Profile Stat Lab 05/31/21 13:03 Completed Medication Summary Generic Name Dose Route Start Last Admin Trade Name Freq PRN Reason Stop Dose Admin Acetaminophen 650 mg 05/31/21 13:02 Acetaminophen 325 Mg Tablet PO 06/30/21 13:01 Q4H PRN PRN PAIN AND/OR FEVER Sodium Chloride 1,000 mls @ 100 mls/hr 05/31/21 16:30 05/31/21 16:30 Sodium Chloride 0.9% 1000 Ml IV 06/30/21 16:29 100 mls/hr .Q10H MISHEL Administration Pantoprazole Sodium 40 mg 05/31/21 16:00 05/31/21 16:30 Pantoprazole 40 Mg Vial IV 06/30/21 15:59 40 mg Q24H10 MISHEL Administration Discontinued Medications Generic Name Dose Route Start Last Admin Trade Name Jorge PRN Reason Stop Dose Admin Dextrose Confirm 05/31/21 11:31 Dextrose 50%-Water 50 Ml Abboject Administered 05/31/21 11:32 Dose 50 ml IV .STK-MED ONE Dextrose 25 ml 05/31/21 11:32 05/31/21 11:35 Dextrose 50%-Water 50 Ml Abboject IV 05/31/21 11:33 25 ml STAT ONE Administration Sodium Chloride Confirm 05/31/21 11:07 Sodium Chloride 0.9% 1000 Ml Administered 05/31/21 11:08 Dose 1,000 mls @ ud .ROUTE .STK-MED ONE Sodium Chloride 1,000 mls @ 999 mls/hr 05/31/21 11:19 05/31/21 12:40 Sodium Chloride 0.9% 1000 Ml IV 05/31/21 12:19 Infused .Q1H1M STA Infusion Magnesium Sulfate/Dextrose 100 mls @ 100 mls/hr 05/31/21 12:15 05/31/21 12:55 Magnesium 1 Gm / 100 Ml D5w IV 05/31/21 14:14 100 mls/hr Q1H MISHEL Administration Potassium Chloride/Sodium Chloride 1,000 mls @ 100 mls/hr 05/31/21 13:15 05/31/21 20:16 Sodium Chloride 0.9% W/ 20 Meq Kcl/Liter IV 06/30/21 13:14 Not Given .Q10H MISHEL Dextrose/Sodium Chloride 1,000 mls @ 100 mls/hr 05/31/21 14:00 05/31/21 13:47 Dextrose 5%-Ns Iv Solution 1000 Ml IV 06/30/21 13:59 100 mls/hr .Q10H MISHEL Administration Lab/Rad Data: Laboratory Result Diagrams 05/31/21 11:30 05/31/21 11:30 Laboratory Results 05/31/21 05/31/21 05/31/21 Range/Units 14:10 13:25 13:17 WBC (4.0-10.5) K/mm3 RBC (4.1-5.6) M/mm3 Hgb (12.5-18.0) gm/dl Hct (42-50) % MCV (78-100) fl MCH (26-32) pg MCHC (32-36) g/dl RDW (11.5-14.0) % Plt Count (150-450) K/mm3 MPV (7.5-11.0) fl Gran % (36.0-66.0) % Eos # (Auto) (0-0.5) Absolute Lymphs (auto) (1.0-4.6) Absolute Monos (auto) (0.0-1.3) Lymphocytes % (24.0-44.0) % Monocytes % (0.0-12.0) % Eosinophils % (0.00-5.0) % Basophils % (0.0-0.4) % Absolute Granulocytes (1.4-6.9) Basophils # (0-0.4) Sodium (137-145) mmol/L Potassium (3.5-5.1) mmol/L Chloride (98-107) mmol/L Carbon Dioxide (22-30) mmol/L Anion Gap (5-15) MEQ/L BUN (9-20) mg/dL Creatinine (0.66-1.25) mg/dL Estimated GFR ML/MIN Glucose (74-106) mg/dL POC Glucometer 84 (74 to 106) mg/dL Calcium (8.4-10.2) mg/dL Magnesium (1.6-2.3) mg/dL Total Bilirubin (0.2-1.3) mg/dL AST (17-59) U/L ALT (0-50) U/L Alkaline Phosphatase (38-126) U/L Troponin I < 0.012 (0.000-0.034) ng/mL Serum Total Protein (6.3-8.2) g/dL Albumin (3.5-5.0) g/dL Urine Color (YELLOW) Urine Appearance (CLEAR) Urine pH (5-6) Ur Specific [place] (1.005-1.025) Urine Protein (Negative) Urine Ketones (NEGATIVE) Urine Blood (0-5) Wes/ul Urine Nitrite (NEGATIVE) Urine Bilirubin (NEGATIVE) Urine Urobilinogen (0-1) mg/dL Ur Leukocyte Esterase (NEGATIVE) Urine WBC (Auto) (0-5) /HPF Urine RBC (Auto) (0-2) /HPF U Epithel Cells (Auto) (FEW) /HPF Urine Bacteria (Auto) (NEGATIVE) /HPF Urine Culture Reflexed (NO) Urine Glucose (NEGATIVE) mg/dL Salicylates (2-20) mg/dL Urine Opiates Level (NEGATIVE) Ur Methadone (NEGATIVE) Acetaminophen (10-30) ug/ml Urine Barbiturates (NEGATIVE) Ur Phencyclidine (PCP) (NEGATIVE) Urine Amphetamine (NEGATIVE) U Benzodiazepine Level (NEGATIVE) Urine Cocaine (NEGATIVE) Urine Marijuana (THC) (NEGATIVE) Ethyl Alcohol (0-10) mg/dL Influenza Type A Ag NEGATIVE (NEGATIVE) Influenza Type B Ag NEGATIVE (NEGATIVE) RSV (PCR) NEGATIVE (Negative) SARS-CoV-2 (PCR) NEGATIVE (NEGATIVE) 05/31/21 05/31/21 05/31/21 Range/Units 13:03 13:03 12:13 WBC (4.0-10.5) K/mm3 RBC (4.1-5.6) M/mm3 Hgb (12.5-18.0) gm/dl Hct (42-50) % MCV (78-100) fl MCH (26-32) pg MCHC (32-36) g/dl RDW (11.5-14.0) % Plt Count (150-450) K/mm3 MPV (7.5-11.0) fl Gran % (36.0-66.0) % Eos # (Auto) (0-0.5) Absolute Lymphs (auto) (1.0-4.6) Absolute Monos (auto) (0.0-1.3) Lymphocytes % (24.0-44.0) % Monocytes % (0.0-12.0) % Eosinophils % (0.00-5.0) % Basophils % (0.0-0.4) % Absolute Granulocytes (1.4-6.9) Basophils # (0-0.4) Sodium (137-145) mmol/L Potassium (3.5-5.1) mmol/L Chloride (98-107) mmol/L Carbon Dioxide (22-30) mmol/L Anion Gap (5-15) MEQ/L BUN (9-20) mg/dL Creatinine (0.66-1.25) mg/dL Estimated GFR ML/MIN Glucose (74-106) mg/dL POC Glucometer 80 (74 to 106) mg/dL Calcium (8.4-10.2) mg/dL Magnesium (1.6-2.3) mg/dL Total Bilirubin (0.2-1.3) mg/dL AST (17-59) U/L ALT (0-50) U/L Alkaline Phosphatase (38-126) U/L Troponin I (0.000-0.034) ng/mL Serum Total Protein (6.3-8.2) g/dL Albumin (3.5-5.0) g/dL Urine Color STRAW (YELLOW) Urine Appearance CLEAR (CLEAR) Urine pH 6.0 (5-6) Ur Specific [place] 1.005 (1.005-1.025) Urine Protein NEGATIVE (Negative) Urine Ketones TRACE (NEGATIVE) Urine Blood NEGATIVE (0-5) Wes/ul Urine Nitrite NEGATIVE (NEGATIVE) Urine Bilirubin NEGATIVE (NEGATIVE) Urine Urobilinogen NEGATIVE (0-1) mg/dL Ur Leukocyte Esterase NEGATIVE (NEGATIVE) Urine WBC (Auto) 3-5 (0-5) /HPF Urine RBC (Auto) NONE (0-2) /HPF U Epithel Cells (Auto) NONE (FEW) /HPF Urine Bacteria (Auto) NONE (NEGATIVE) /HPF Urine Culture Reflexed NO (NO) Urine Glucose NEGATIVE (NEGATIVE) mg/dL Salicylates (2-20) mg/dL Urine Opiates Level NEGATIVE (NEGATIVE) Ur Methadone NEGATIVE (NEGATIVE) Acetaminophen (10-30) ug/ml Urine Barbiturates NEGATIVE (NEGATIVE) Ur Phencyclidine (PCP) NEGATIVE (NEGATIVE) Urine Amphetamine NEGATIVE (NEGATIVE) U Benzodiazepine Level NEGATIVE (NEGATIVE) Urine Cocaine NEGATIVE (NEGATIVE) Urine Marijuana (THC) NEGATIVE (NEGATIVE) Ethyl Alcohol (0-10) mg/dL Influenza Type A Ag (NEGATIVE) Influenza Type B Ag (NEGATIVE) RSV (PCR) (Negative) SARS-CoV-2 (PCR) (NEGATIVE) 05/31/21 05/31/21 05/31/21 Range/Units 11:30 11:30 11:30 WBC 9.2 (4.0-10.5) K/mm3 RBC 4.19 (4.1-5.6) M/mm3 Hgb 12.9 (12.5-18.0) gm/dl Hct 36.3 L (42-50) % MCV 86.6 (78-100) fl MCH 30.8 (26-32) pg MCHC 35.5 (32-36) g/dl RDW 12.4 (11.5-14.0) % Plt Count 242 (150-450) K/mm3 MPV 9.2 (7.5-11.0) fl Gran % 55.5 (36.0-66.0) % Eos # (Auto) 0.14 (0-0.5) Absolute Lymphs (auto) 2.96 (1.0-4.6) Absolute Monos (auto) 0.97 (0.0-1.3) Lymphocytes % 32.3 (24.0-44.0) % Monocytes % 10.6 (0.0-12.0) % Eosinophils % 1.5 (0.00-5.0) % Basophils % 0.1 (0.0-0.4) % Absolute Granulocytes 5.09 (1.4-6.9) Basophils # 0.01 (0-0.4) Sodium 128 L D (137-145) mmol/L Potassium 3.8 (3.5-5.1) mmol/L Chloride 93 L (98-107) mmol/L Carbon Dioxide 22 (22-30) mmol/L Anion Gap 17.0 H (5-15) MEQ/L BUN 7 L (9-20) mg/dL Creatinine 0.44 L (0.66-1.25) mg/dL Estimated GFR > 60.0 ML/MIN Glucose 51 L (74-106) mg/dL POC Glucometer (74 to 106) mg/dL Calcium 9.1 (8.4-10.2) mg/dL Magnesium 1.3 L (1.6-2.3) mg/dL Total Bilirubin 0.50 (0.2-1.3) mg/dL AST 24 (17-59) U/L ALT 22 (0-50) U/L Alkaline Phosphatase 39 (38-126) U/L Troponin I < 0.012 (0.000-0.034) ng/mL Serum Total Protein 6.6 (6.3-8.2) g/dL Albumin 4.5 (3.5-5.0) g/dL Urine Color (YELLOW) Urine Appearance (CLEAR) Urine pH (5-6) Ur Specific [place] (1.005-1.025) Urine Protein (Negative) Urine Ketones (NEGATIVE) Urine Blood (0-5) Wes/ul Urine Nitrite (NEGATIVE) Urine Bilirubin (NEGATIVE) Urine Urobilinogen (0-1) mg/dL Ur Leukocyte Esterase (NEGATIVE) Urine WBC (Auto) (0-5) /HPF Urine RBC (Auto) (0-2) /HPF U Epithel Cells (Auto) (FEW) /HPF Urine Bacteria (Auto) (NEGATIVE) /HPF Urine Culture Reflexed (NO) Urine Glucose (NEGATIVE) mg/dL Salicylates < 1.0 L (2-20) mg/dL Urine Opiates Level (NEGATIVE) Ur Methadone (NEGATIVE) Acetaminophen < 10 L (10-30) ug/ml Urine Barbiturates (NEGATIVE) Ur Phencyclidine (PCP) (NEGATIVE) Urine Amphetamine (NEGATIVE) U Benzodiazepine Level (NEGATIVE) Urine Cocaine (NEGATIVE) Urine Marijuana (THC) (NEGATIVE) Ethyl Alcohol < 10 (0-10) mg/dL Influenza Type A Ag (NEGATIVE) Influenza Type B Ag (NEGATIVE) RSV (PCR) (Negative) SARS-CoV-2 (PCR) (NEGATIVE) 05/31/21 Range/Units 11:28 WBC (4.0-10.5) K/mm3 RBC (4.1-5.6) M/mm3 Hgb (12.5-18.0) gm/dl Hct (42-50) % MCV (78-100) fl MCH (26-32) pg MCHC (32-36) g/dl RDW (11.5-14.0) % Plt Count (150-450) K/mm3 MPV (7.5-11.0) fl Gran % (36.0-66.0) % Eos # (Auto) (0-0.5) Absolute Lymphs (auto) (1.0-4.6) Absolute Monos (auto) (0.0-1.3) Lymphocytes % (24.0-44.0) % Monocytes % (0.0-12.0) % Eosinophils % (0.00-5.0) % Basophils % (0.0-0.4) % Absolute Granulocytes (1.4-6.9) Basophils # (0-0.4) Sodium (137-145) mmol/L Potassium (3.5-5.1) mmol/L Chloride (98-107) mmol/L Carbon Dioxide (22-30) mmol/L Anion Gap (5-15) MEQ/L BUN (9-20) mg/dL Creatinine (0.66-1.25) mg/dL Estimated GFR ML/MIN Glucose (74-106) mg/dL POC Glucometer 51 L (74 to 106) mg/dL Calcium (8.4-10.2) mg/dL Magnesium (1.6-2.3) mg/dL Total Bilirubin (0.2-1.3) mg/dL AST (17-59) U/L ALT (0-50) U/L Alkaline Phosphatase (38-126) U/L Troponin I (0.000-0.034) ng/mL Serum Total Protein (6.3-8.2) g/dL Albumin (3.5-5.0) g/dL Urine Color (YELLOW) Urine Appearance (CLEAR) Urine pH (5-6) Ur Specific [place] (1.005-1.025) Urine Protein (Negative) Urine Ketones (NEGATIVE) Urine Blood (0-5) Wes/ul Urine Nitrite (NEGATIVE) Urine Bilirubin (NEGATIVE) Urine Urobilinogen (0-1) mg/dL Ur Leukocyte Esterase (NEGATIVE) Urine WBC (Auto) (0-5) /HPF Urine RBC (Auto) (0-2) /HPF U Epithel Cells (Auto) (FEW) /HPF Urine Bacteria (Auto) (NEGATIVE) /HPF Urine Culture Reflexed (NO) Urine Glucose (NEGATIVE) mg/dL Salicylates (2-20) mg/dL Urine Opiates Level (NEGATIVE) Ur Methadone (NEGATIVE) Acetaminophen (10-30) ug/ml Urine Barbiturates (NEGATIVE) Ur Phencyclidine (PCP) (NEGATIVE) Urine Amphetamine (NEGATIVE) U Benzodiazepine Level (NEGATIVE) Urine Cocaine (NEGATIVE) Urine Marijuana (THC) (NEGATIVE) Ethyl Alcohol (0-10) mg/dL Influenza Type A Ag (NEGATIVE) Influenza Type B Ag (NEGATIVE) RSV (PCR) (Negative) SARS-CoV-2 (PCR) (NEGATIVE) - Progress Progress: unchanged Progress Note: 05/31/21 12:59 Patient is awake alert and oriented on presentation, answering questions appropriately. It was a pure accidental intake. No previous history of abuse. While in the ER patient is sleeping but easily arousable. Protecting his airway. EKG normal sinus rhythm without any acute ischemic changes. No prolongation of QT interval. Work-up sodium 128, given fluid bolus and pressure is stable, actually on the higher side. As per poison control recommendation, patient needs to be observed. I have discussed with Dr. Nye and patient is being admitted for observation 05/31/21 13:49 Patient blood sugar was low in 50s, given half ampule of D50, recheck is in the 80s, started on D5W and will hold off on antidiabetic medications until his bloo d sugar is well maintained. Discussed with : Gianni Will see patient in: hospital (observation) Counseled pt/family regarding: lab results, diagnosis, need for follow-up, rad results - Departure Departure Disposition: Observation Clinical Impression: Drug-induced hypoglycemia without coma Accidental overdose Qualifiers: Encounter type: initial encounter Qualified Code(s): T50.901A - Poisoning by unspecified drugs, medicaments and biological substances, accidental (unintenti onal), initial encounter Condition: Stable Critical Care Time: No
[2021-05-31] MEDS ORDERED: TYLENOL 325 MG PO PRN (13:02)
[2021-05-31] MEDS ORDERED: Sodium Chloride 0.9% W/ 20 mEq KCl/LITER 1,000 ML IV SCH (13:15)
[2021-05-31 13:35] LABS: Appearance CLEAR (CLEAR); Bilirubin NEGATIVE (NEGATIVE); Blood NEGATIVE Ery/ul (0-5); Glucose NEGATIVE (NEGATIVE); Ketones TRACE (NEGATIVE); Leukocyte Esterase NEGATIVE (NEGATIVE); Nitrite NEGATIVE (NEGATIVE); Protein,Urine Dip NEGATIVE (Negative); Specific Gravity 1.005 (1.005-1.025); Urobilinogen NEGATIVE mg/dL (0-1)
[2021-05-31 14:00] LABS: Amphetamine,Urine NEGATIVE (NEGATIVE); Barbiturate,Urine NEGATIVE (NEGATIVE); Benzodiazepine,Urine NEGATIVE (NEGATIVE); Cocaine,Urine NEGATIVE (NEGATIVE); Methadone,Urine NEGATIVE (NEGATIVE); Opiate,Urine NEGATIVE (NEGATIVE); PCP,Urine NEGATIVE (NEGATIVE); THC,Urine NEGATIVE (NEGATIVE)
[2021-05-31] MEDS ORDERED: Dextrose 5%-NS IV Solution 1000 ML 1,000 ML IV SCH (14:00)
[2021-05-31 14:01] LABS: INFLUENZA A NEGATIVE (NEGATIVE); INFLUENZA B NEGATIVE (NEGATIVE); RESPIRATORY SYNCTIAL VIRUS NEGATIVE (Negative); SARS-CoV-2 Xpert Express NEGATIVE (NEGATIVE)
[2021-05-31] MEDS ORDERED: PROTONIX 40 MG IV IV SCH (16:00)
[2021-05-31] MEDS: Sodium Chloride 0.9% 1000 ML 1,000 ML IV SCH (16:30)
--- NOTE | 2021-05-31 18:11 | PCM.HP ---
History of Present Illness - Chief Complaint Chief Complaint: accidental overdose History of Present Illness: is a 46 year old male with severe autism who was recently hospitalized for hyponatremia secondary to psychogenic polydipsia. He returned to the ER today because his mother notes that he accidentally took an entire day of medications as well as a morning dose of meds all at once from his pill organizer. She believes he thought he should take them because there were doses present that he missed while he was hospitalized. He is sleepy but arousable, he wants to go home. no other complaints at present.on review of meds this most notably includes 20mg haldol, 900mg demeclocycline, 2550mg metformin and 3mg ativan. - Review of Systems All Other Systems: Reviewed and Negative Medications & Allergies Home Medications: Home Medication List Bimatoprost 0.01% [Lumigan 0.01% 2.5 ml] 1 drop OP HS 11/03/13 [History Confirmed 05/31/21] Divalproex Sodium [Depakote ER] 2 tab PO HS 11/03/13 [History Confirmed 05/31/21] Enalapril Maleate 5 mg [Vasotec 5 MG] 40 mg PO DAILY 11/03/13 [History Confirmed 05/31/21] Escitalopram Oxalate [Lexapro] 10 mg PO QAM 11/03/13 [History Confirmed ] Gemfibrozil 600 mg [Lopid 600 mg] 600 mg PO BID 11/03/13 [History Confirmed 05/31/21] Haloperidol 5 mg [Haldol 5 MG] 10 mg PO HS 11/03/13 [History Confirmed 05/31/21] Insulin Lispro [Humalog] 13 units SQ AC 11/03/13 [History Confirmed 05/31/21] Lorazepam 1 mg [Ativan 1 MG] 1 mg PO TID 11/03/13 [History Confirmed 05/31/21] Metformin HCl 850 mg [Glucophage 850 MG] 850 mg PO BID 11/03/13 [History Confirmed 05/31/21] Benztropine Mesylate 1 mg PO BID 08/13/18 [History Confirmed 05/31/21] Insulin Glargine,Hum.rec.anlog [Lantus] 35 unit SQ BID 08/13/18 [History Confirmed 05/31/21] Simvastatin [Zocor] 40 mg PO HS 08/13/18 [History Confirmed 05/31/21] Tamsulosin HCl 0.4 mg [Flomax 0.4 MG] 0.4 mg PO HS 08/13/18 [History Confirmed 05/31/21] Tolterodine Tartrate 2 mg PO DAILY 08/13/18 [History Confirmed 05/31/21] Demeclocycline HCl 300 mg PO BID 05/28/21 [History Confirmed 05/31/21] Doxepin HCl 50 mg PO HS 05/28/21 [History Confirmed 05/31/21] haloperidoL [Haloperidol] 5 mg PO BID 05/28/21 [History Confirmed 05/31/21] Tolvaptan 1 tab PO DAILY 05/31/21 [History Confirmed 05/31/21] Allergies/Adverse Reactions: Allergies Allergy/AdvReac Type Severity Reaction Status Date / Time Sulfa (Sulfonamide Allergy Mild Hives Verified 05/28/21 20:07 Antibiotics) bee venom protein (honey bee) Allergy Verified 05/28/21 20:07 - Past Medical History Past Medical History: Yes Neurological History: Other ENT History: Glaucoma Cardiac History: Hypertension Respiratory History: Sleep Apnea Endocrine Medical History: Diabetes Type II Musculoskelatal History: No Pertinent History GI Medical History: No Pertinent History History: No Pertinent History Pyscho-Social History: Other Male Reproductive Disorders: No Pertinent History Comment: AUTISM - Past Surgical History Past Surgical History: Yes Neuro Surgical History: No Pertinent History Cardiac History: No Pertinent History Respiratory Surgery: No Pertinent History GI Surgical History: No Pertinent History Genitourinary Surgical Hx: No Pertinent History Musculskeletal Surgical Hx: No Pertinent History Male Surgical History: No Pertinent History Other Surgical History: TONSILECTOMY. tip of finger removed right hand. cyst removed from behind left knee - Social History Smoking Status: Never smoker Exposure to second hand smoke: No Alcohol: None Drug Use: none - Physical Exam Vital Signs: Vital Signs - 24 hr Temp Pulse Resp BP Pulse Ox 05/31/21 15:40 98.3 F 84 20 132/73 96 05/31/21 15:23 98.3 F 84 22 132/78 96 05/31/21 15:22 98.3 F 84 20 132/73 96 05/31/21 14:00 88 20 147/94 96 05/31/21 13:50 95 05/31/21 13:00 84 20 149/89 96 05/31/21 12:00 92 H 20 162/90 95 05/31/21 11:03 98 F 96 H 20 150/82 96 General Appearance: no apparent distress, obese, other (sleeping but arousable, states "I want to go home") Neurologic Exam: alert, cooperative Respiratory Exam: normal breath sounds, lungs clear, No respiratory distress Cardiovascular Exam: regular rate/rhythm, normal heart sounds, normal peripheral pulses Gastrointestinal/Abdomen Exam: soft, normal bowel sounds, No tenderness, No mass Extremity Exam: normal inspection, normal range of motion, pelvis stable Skin Exam: normal color, warm, dry, No rash Results - Labs Lab/Micro Results: Lab Results-Last 24 Hours 05/31/21 05/31/21 05/31/21 Range/Units 11:28 11:30 11:30 WBC 9.2 (4.0-10.5) K/mm3 RBC 4.19 (4.1-5.6) M/mm3 Hgb 12.9 (12.5-18.0) gm/dl Hct 36.3 L (42-50) % MCV 86.6 (78-100) fl MCH 30.8 (26-32) pg MCHC 35.5 (32-36) g/dl RDW 12.4 (11.5-14.0) % Plt Count 242 (150-450) K/mm3 MPV 9.2 (7.5-11.0) fl Gran % 55.5 (36.0-66.0) % Eos # (Auto) 0.14 (0-0.5) Absolute Lymphs (auto) 2.96 (1.0-4.6) Absolute Monos (auto) 0.97 (0.0-1.3) Lymphocytes % 32.3 (24.0-44.0) % Monocytes % 10.6 (0.0-12.0) % Eosinophils % 1.5 (0.00-5.0) % Basophils % 0.1 (0.0-0.4) % Absolute Granulocytes 5.09 (1.4-6.9) Basophils # 0.01 (0-0.4) Sodium 128 L D (137-145) mmol/L Potassium 3.8 (3.5-5.1) mmol/L Chloride 93 L (98-107) mmol/L Carbon Dioxide 22 (22-30) mmol/L Anion Gap 17.0 H (5-15) MEQ/L BUN 7 L (9-20) mg/dL Creatinine 0.44 L (0.66-1.25) mg/dL Estimated GFR > 60.0 ML/MIN Glucose 51 L (74-106) mg/dL POC Glucometer 51 L (74 to 106) mg/dL Calcium 9.1 (8.4-10.2) mg/dL Magnesium 1.3 L (1.6-2.3) mg/dL Total Bilirubin 0.50 (0.2-1.3) mg/dL AST 24 (17-59) U/L ALT 22 (0-50) U/L Alkaline Phosphatase 39 (38-126) U/L Troponin I (0.000-0.034) ng/mL Serum Total Protein 6.6 (6.3-8.2) g/dL Albumin 4.5 (3.5-5.0) g/dL Urine Color (YELLOW) Urine Appearance (CLEAR) Urine pH (5-6) Ur Specific Flomot (1.005-1.025) Urine Protein (Negative) Urine Ketones (NEGATIVE) Urine Blood (0-5) Wes/ul Urine Nitrite (NEGATIVE) Urine Bilirubin (NEGATIVE) Urine Urobilinogen (0-1) mg/dL Ur Leukocyte Esterase (NEGATIVE) Urine WBC (Auto) (0-5) /HPF Urine RBC (Auto) (0-2) /HPF U Epithel Cells (Auto) (FEW) /HPF Urine Bacteria (Auto) (NEGATIVE) /HPF Urine Culture Reflexed (NO) Urine Glucose (NEGATIVE) mg/dL Salicylates < 1.0 L (2-20) mg/dL Urine Opiates Level (NEGATIVE) Ur Methadone (NEGATIVE) Acetaminophen < 10 L (10-30) ug/ml Urine Barbiturates (NEGATIVE) Ur Phencyclidine (PCP) (NEGATIVE) Urine Amphetamine (NEGATIVE) U Benzodiazepine Level (NEGATIVE) Urine Cocaine (NEGATIVE) Urine Marijuana (THC) (NEGATIVE) Ethyl Alcohol < 10 (0-10) mg/dL Influenza Type A Ag (NEGATIVE) Influenza Type B Ag (NEGATIVE) RSV (PCR) (Negative) SARS-CoV-2 (PCR) (NEGATIVE) 05/31/21 05/31/21 05/31/21 Range/Units 11:30 12:13 13:03 WBC (4.0-10.5) K/mm3 RBC (4.1-5.6) M/mm3 Hgb (12.5-18.0) gm/dl Hct (42-50) % MCV (78-100) fl MCH (26-32) pg MCHC (32-36) g/dl RDW (11.5-14.0) % Plt Count (150-450) K/mm3 MPV (7.5-11.0) fl Gran % (36.0-66.0) % Eos # (Auto) (0-0.5) Absolute Lymphs (auto) (1.0-4.6) Absolute Monos (auto) (0.0-1.3) Lymphocytes % (24.0-44.0) % Monocytes % (0.0-12.0) % Eosinophils % (0.00-5.0) % Basophils % (0.0-0.4) % Absolute Granulocytes (1.4-6.9) Basophils # (0-0.4) Sodium (137-145) mmol/L Potassium (3.5-5.1) mmol/L Chloride (98-107) mmol/L Carbon Dioxide (22-30) mmol/L Anion Gap (5-15) MEQ/L BUN (9-20) mg/dL Creatinine (0.66-1.25) mg/dL Estimated GFR ML/MIN Glucose (74-106) mg/dL POC Glucometer 80 (74 to 106) mg/dL Calcium (8.4-10.2) mg/dL Magnesium (1.6-2.3) mg/dL Total Bilirubin (0.2-1.3) mg/dL AST (17-59) U/L ALT (0-50) U/L Alkaline Phosphatase (38-126) U/L Troponin I < 0.012 (0.000-0.034) ng/mL Serum Total Protein (6.3-8.2) g/dL Albumin (3.5-5.0) g/dL Urine Color STRAW (YELLOW) Urine Appearance CLEAR (CLEAR) Urine pH 6.0 (5-6) Ur Specific Flomot 1.005 (1.005-1.025) Urine Protein NEGATIVE (Negative) Urine Ketones TRACE (NEGATIVE) Urine Blood NEGATIVE (0-5) Wes/ul Urine Nitrite NEGATIVE (NEGATIVE) Urine Bilirubin NEGATIVE (NEGATIVE) Urine Urobilinogen NEGATIVE (0-1) mg/dL Ur Leukocyte Esterase NEGATIVE (NEGATIVE) Urine WBC (Auto) 3-5 (0-5) /HPF Urine RBC (Auto) NONE (0-2) /HPF U Epithel Cells (Auto) NONE (FEW) /HPF Urine Bacteria (Auto) NONE (NEGATIVE) /HPF Urine Culture Reflexed NO (NO) Urine Glucose NEGATIVE (NEGATIVE) mg/dL Salicylates (2-20) mg/dL Urine Opiates Level (NEGATIVE) Ur Methadone (NEGATIVE) Acetaminophen (10-30) ug/ml Urine Barbiturates (NEGATIVE) Ur Phencyclidine (PCP) (NEGATIVE) Urine Amphetamine (NEGATIVE) U Benzodiazepine Level (NEGATIVE) Urine Cocaine (NEGATIVE) Urine Marijuana (THC) (NEGATIVE) Ethyl Alcohol (0-10) mg/dL Influenza Type A Ag (NEGATIVE) Influenza Type B Ag (NEGATIVE) RSV (PCR) (Negative) SARS-CoV-2 (PCR) (NEGATIVE) 05/31/21 05/31/21 05/31/21 Range/Units 13:03 13:17 13:25 WBC (4.0-10.5) K/mm3 RBC (4.1-5.6) M/mm3 Hgb (12.5-18.0) gm/dl Hct (42-50) % MCV (78-100) fl MCH (26-32) pg MCHC (32-36) g/dl RDW (11.5-14.0) % Plt Count (150-450) K/mm3 MPV (7.5-11.0) fl Gran % (36.0-66.0) % Eos # (Auto) (0-0.5) Absolute Lymphs (auto) (1.0-4.6) Absolute Monos (auto) (0.0-1.3) Lymphocytes % (24.0-44.0) % Monocytes % (0.0-12.0) % Eosinophils % (0.00-5.0) % Basophils % (0.0-0.4) % Absolute Granulocytes (1.4-6.9) Basophils # (0-0.4) Sodium (137-145) mmol/L Potassium (3.5-5.1) mmol/L Chloride (98-107) mmol/L Carbon Dioxide (22-30) mmol/L Anion Gap (5-15) MEQ/L BUN (9-20) mg/dL Creatinine (0.66-1.25) mg/dL Estimated GFR ML/MIN Glucose (74-106) mg/dL POC Glucometer 84 (74 to 106) mg/dL Calcium (8.4-10.2) mg/dL Magnesium (1.6-2.3) mg/dL Total Bilirubin (0.2-1.3) mg/dL AST (17-59) U/L ALT (0-50) U/L Alkaline Phosphatase (38-126) U/L Troponin I (0.000-0.034) ng/mL Serum Total Protein (6.3-8.2) g/dL Albumin (3.5-5.0) g/dL Urine Color (YELLOW) Urine Appearance (CLEAR) Urine pH (5-6) Ur Specific Flomot (1.005-1.025) Urine Protein (Negative) Urine Ketones (NEGATIVE) Urine Blood (0-5) Wes/ul Urine Nitrite (NEGATIVE) Urine Bilirubin (NEGATIVE) Urine Urobilinogen (0-1) mg/dL Ur Leukocyte Esterase (NEGATIVE) Urine WBC (Auto) (0-5) /HPF Urine RBC (Auto) (0-2) /HPF U Epithel Cells (Auto) (FEW) /HPF Urine Bacteria (Auto) (NEGATIVE) /HPF Urine Culture Reflexed (NO) Urine Glucose (NEGATIVE) mg/dL Salicylates (2-20) mg/dL Urine Opiates Level NEGATIVE (NEGATIVE) Ur Methadone NEGATIVE (NEGATIVE) Acetaminophen (10-30) ug/ml Urine Barbiturates NEGATIVE (NEGATIVE) Ur Phencyclidine (PCP) NEGATIVE (NEGATIVE) Urine Amphetamine NEGATIVE (NEGATIVE) U Benzodiazepine Level NEGATIVE (NEGATIVE) Urine Cocaine NEGATIVE (NEGATIVE) Urine Marijuana (THC) NEGATIVE (NEGATIVE) Ethyl Alcohol (0-10) mg/dL Influenza Type A Ag NEGATIVE (NEGATIVE) Influenza Type B Ag NEGATIVE (NEGATIVE) RSV (PCR) NEGATIVE (Negative) SARS-CoV-2 (PCR) NEGATIVE (NEGATIVE) 05/31/21 05/31/21 Range/Units 14:10 16:09 WBC (4.0-10.5) K/mm3 RBC (4.1-5.6) M/mm3 Hgb (12.5-18.0) gm/dl Hct (42-50) % MCV (78-100) fl MCH (26-32) pg MCHC (32-36) g/dl RDW (11.5-14.0) % Plt Count (150-450) K/mm3 MPV (7.5-11.0) fl Gran % (36.0-66.0) % Eos # (Auto) (0-0.5) Absolute Lymphs (auto) (1.0-4.6) Absolute Monos (auto) (0.0-1.3) Lymphocytes % (24.0-44.0) % Monocytes % (0.0-12.0) % Eosinophils % (0.00-5.0) % Basophils % (0.0-0.4) % Absolute Granulocytes (1.4-6.9) Basophils # (0-0.4) Sodium (137-145) mmol/L Potassium (3.5-5.1) mmol/L Chloride (98-107) mmol/L Carbon Dioxide (22-30) mmol/L Anion Gap (5-15) MEQ/L BUN (9-20) mg/dL Creatinine (0.66-1.25) mg/dL Estimated GFR ML/MIN Glucose (74-106) mg/dL POC Glucometer 143 H (74 to 106) mg/dL Calcium (8.4-10.2) mg/dL Magnesium (1.6-2.3) mg/dL Total Bilirubin (0.2-1.3) mg/dL AST (17-59) U/L ALT (0-50) U/L Alkaline Phosphatase (38-126) U/L Troponin I < 0.012 (0.000-0.034) ng/mL Serum Total Protein (6.3-8.2) g/dL Albumin (3.5-5.0) g/dL Urine Color (YELLOW) Urine Appearance (CLEAR) Urine pH (5-6) Ur Specific Flomot (1.005-1.025) Urine Protein (Negative) Urine Ketones (NEGATIVE) Urine Blood (0-5) Wes/ul Urine Nitrite (NEGATIVE) Urine Bilirubin (NEGATIVE) Urine Urobilinogen (0-1) mg/dL Ur Leukocyte Esterase (NEGATIVE) Urine WBC (Auto) (0-5) /HPF Urine RBC (Auto) (0-2) /HPF U Epithel Cells (Auto) (FEW) /HPF Urine Bacteria (Auto) (NEGATIVE) /HPF Urine Culture Reflexed (NO) Urine Glucose (NEGATIVE) mg/dL Salicylates (2-20) mg/dL Urine Opiates Level (NEGATIVE) Ur Methadone (NEGATIVE) Acetaminophen (10-30) ug/ml Urine Barbiturates (NEGATIVE) Ur Phencyclidine (PCP) (NEGATIVE) Urine Amphetamine (NEGATIVE) U Benzodiazepine Level (NEGATIVE) Urine Cocaine (NEGATIVE) Urine Marijuana (THC) (NEGATIVE) Ethyl Alcohol (0-10) mg/dL Influenza Type A Ag (NEGATIVE) Influenza Type B Ag (NEGATIVE) RSV (PCR) (Negative) SARS-CoV-2 (PCR) (NEGATIVE) Accuchecks Date 05/31/21 Time 11:29 - Radiology Impressions Radiology Exams & Impressions: Radiology Procedures Category Date Time Status CHEST 1 VIEW (PORTABLE) Stat Exams 05/31/21 11:20 Taken - Other Procedures and Tests Respiratory Therapy 05/31/21 13:02 Oxygen Nasal Cannula 2 lpm Assessment/Plan (1) Accidental overdose Current Visit: Yes Status: Acute Qualifiers: Encounter type: initial encounter Qualified Code(s): T50.901A - Poisoning by unspecified drugs, medicaments and biological substances, accidental (unintentional), initial encounter Assessment & Plan: ekg nonacute, labs are reassuring, will monitor overnight, repeat labs in the am and likely discharge to home tomorrow. Code(s): T50.901A - POISONING BY UNSP DRUG/MEDS/BIOL SUBST, ACCIDENTAL, INIT (2) Drug-induced hypoglycemia without coma Current Visit: Yes Status: Acute Code(s): E16.0 - DRUG-INDUCED HYPOGLYCEMIA WITHOUT COMA (3) Autism Current Visit: No Status: Acute Code(s): F84.0 - AUTISTIC DISORDER (4) Diabetes mellitus Current Visit: No Status: Acute Code(s): E11.9 - TYPE 2 DIABETES MELLITUS WITHOUT COMPLICATIONS
--- NOTE | 2021-05-31 19:09 | XRAY ---
Indication: Overdose. Comparison: May 28, 2021. Portable chest again demonstrates normal heart, lungs, and bony thorax.
[2021-06-01 01:41] LABS: Absolute Neutrophil Ct (ANC) 2.93 (1.4-6.9); BASOPHIL % 0.3 % (0.0-0.4); Basophil (Absolute #) 0.02 (0-0.4); Eosinophil % 2.8 % (0.00-5.0); Eosinophil (Absolute #) 0.18 (0-0.5); Hematocrit 33.7 % (42-50); Hemoglobin 11.7 gm/dl (12.5-18.0); Lymphocyte (Absolute #) 2.69 (1.0-4.6); Lymphocytes % 41.1 % (24.0-44.0); Mean Cell Volume 88.5 fl (78-100); Mean Corpuscular Hemoglobin 30.7 pg (26-32); Mean Corpuscular Hgb Concent. 34.7 g/dl (32-36); Mean Platelet Volume 8.9 fl (7.5-11.0); Monocyte (Absolute #) 0.72 (0.0-1.3); Neutrophil % 44.8 % (36.0-66.0); Platelet Count 228 K/mm3 (150-450); Red Blood Count 3.81 M/mm3 (4.1-5.6); Red Cell Distribution Width 12.6 % (11.5-14.0); White Blood Count 6.5 K/mm3 (4.0-10.5)
[2021-06-01] MEDS: Sodium Chloride 0.9% 1000 ML 1,000 ML IV SCH (01:45)
[2021-06-01 02:39] LABS: ALBUMIN 3.9 g/dL (3.5-5.0); ALKALINE PHOSPHATASE 35 U/L (38-126); ANION GAP 13.6 MEQ/L (5-15); BLOOD UREA NITROGEN 7 mg/dL (9-20); CHLORIDE 101 mmol/L (98-107); Calcium 8.3 mg/dL (8.4-10.2); Carbon Dioxide 22 mmol/L (22-30); Creatinine 1 0.52 mg/dL (0.66-1.25); EST GLOMERULAR FILTRATION RATE > 60.0 ML/MIN; Glucose 82 mg/dL (74-106); Potassium 4.3 mmol/L (3.5-5.1); SGOT/AST 22 U/L (17-59); SGPT/ALT 19 U/L (0-50); SODIUM 133 mmol/L (137-145); Total Protein 6.1 g/dL (6.3-8.2)
[2021-06-01 07:25] VITALS: BP 167/92; PULSE 85; O2SAT 96
--- NOTE | 2021-06-01 07:36 | PCM.DS ---
Discharge Summary Date of Admission: 05/31/21 15:07 Admitting Physician: GRANT BLACK Primary Care Provider: ROLANDO GARZA Allergies Allergies Sulfa (Sulfonamide Antibiotics) Allergy (Mild, Verified 05/28/21 20:07) Hives bee venom protein (honey bee) Allergy (Verified 05/28/21 20:07) Hospital Summary - Hospital Course Hospital Course: doing great, he is alert today and wants to go home. accidental overdose on daily pills with haldol and ativan, slept a lot yesterday. he is awake, alert and feels well and wants to go home. - Vitals & Intake/Output Vital Signs: Vital Signs Temperature 97.6 F 06/01/21 07:25 Pulse Rate 85 06/01/21 07:25 Respiratory Rate 20 06/01/21 07:25 Blood Pressure 167/92 06/01/21 07:25 O2 Sat by Pulse Oximetry 96 06/01/21 07:25 Intake & Output: Intake & Output 05/29/21 05/30/21 05/31/21 06/01/21 11:59 11:59 11:59 11:59 Intake Total 2049 Balance 2049 Weight 109 kg 101.5 kg - Lab Result Diagrams: 06/01/21 01:37 06/01/21 01:37 Lab Results-Last 24 Hrs: Lab Results-Last 24 Hours 05/31/21 05/31/21 05/31/21 Range/Units 01:37 11:28 11:30 WBC 9.2 (4.0-10.5) K/mm3 RBC 4.19 (4.1-5.6) M/mm3 Hgb 12.9 (12.5-18.0) gm/dl Hct 36.3 L (42-50) % MCV 86.6 (78-100) fl MCH 30.8 (26-32) pg MCHC 35.5 (32-36) g/dl RDW 12.4 (11.5-14.0) % Plt Count 242 (150-450) K/mm3 MPV 9.2 (7.5-11.0) fl Gran % 55.5 (36.0-66.0) % Eos # (Auto) 0.14 (0-0.5) Absolute Lymphs (auto) 2.96 (1.0-4.6) Absolute Monos (auto) 0.97 (0.0-1.3) Lymphocytes % 32.3 (24.0-44.0) % Monocytes % 10.6 (0.0-12.0) % Eosinophils % 1.5 (0.00-5.0) % Basophils % 0.1 (0.0-0.4) % Absolute Granulocytes 5.09 (1.4-6.9) Basophils # 0.01 (0-0.4) Sodium (137-145) mmol/L Potassium (3.5-5.1) mmol/L Chloride (98-107) mmol/L Carbon Dioxide (22-30) mmol/L Anion Gap (5-15) MEQ/L BUN (9-20) mg/dL Creatinine (0.66-1.25) mg/dL Estimated GFR ML/MIN Glucose (74-106) mg/dL POC Glucometer 51 L (74 to 106) mg/dL Calcium (8.4-10.2) mg/dL Magnesium (1.6-2.3) mg/dL Total Bilirubin (0.2-1.3) mg/dL AST (17-59) U/L ALT (0-50) U/L Alkaline Phosphatase (38-126) U/L Troponin I < 0.012 (0.000-0.034) ng/mL Serum Total Protein (6.3-8.2) g/dL Albumin (3.5-5.0) g/dL Urine Color (YELLOW) Urine Appearance (CLEAR) Urine pH (5-6) Ur Specific [place] (1.005-1.025) Urine Protein (Negative) Urine Ketones (NEGATIVE) Urine Blood (0-5) Wes/ul Urine Nitrite (NEGATIVE) Urine Bilirubin (NEGATIVE) Urine Urobilinogen (0-1) mg/dL Ur Leukocyte Esterase (NEGATIVE) Urine WBC (Auto) (0-5) /HPF Urine RBC (Auto) (0-2) /HPF U Epithel Cells (Auto) (FEW) /HPF Urine Bacteria (Auto) (NEGATIVE) /HPF Urine Culture Reflexed (NO) Urine Glucose (NEGATIVE) mg/dL Salicylates (2-20) mg/dL Urine Opiates Level (NEGATIVE) Ur Methadone (NEGATIVE) Acetaminophen (10-30) ug/ml Urine Barbiturates (NEGATIVE) Ur Phencyclidine (PCP) (NEGATIVE) Urine Amphetamine (NEGATIVE) U Benzodiazepine Level (NEGATIVE) Urine Cocaine (NEGATIVE) Urine Marijuana (THC) (NEGATIVE) Ethyl Alcohol (0-10) mg/dL Influenza Type A Ag (NEGATIVE) Influenza Type B Ag (NEGATIVE) RSV (PCR) (Negative) SARS-CoV-2 (PCR) (NEGATIVE) 05/31/21 05/31/21 05/31/21 Range/Units 11:30 11:30 12:13 WBC (4.0-10.5) K/mm3 RBC (4.1-5.6) M/mm3 Hgb (12.5-18.0) gm/dl Hct (42-50) % MCV (78-100) fl MCH (26-32) pg MCHC (32-36) g/dl RDW (11.5-14.0) % Plt Count (150-450) K/mm3 MPV (7.5-11.0) fl Gran % (36.0-66.0) % Eos # (Auto) (0-0.5) Absolute Lymphs (auto) (1.0-4.6) Absolute Monos (auto) (0.0-1.3) Lymphocytes % (24.0-44.0) % Monocytes % (0.0-12.0) % Eosinophils % (0.00-5.0) % Basophils % (0.0-0.4) % Absolute Granulocytes (1.4-6.9) Basophils # (0-0.4) Sodium 128 L D (137-145) mmol/L Potassium 3.8 (3.5-5.1) mmol/L Chloride 93 L (98-107) mmol/L Carbon Dioxide 22 (22-30) mmol/L Anion Gap 17.0 H (5-15) MEQ/L BUN 7 L (9-20) mg/dL Creatinine 0.44 L (0.66-1.25) mg/dL Estimated GFR > 60.0 ML/MIN Glucose 51 L (74-106) mg/dL POC Glucometer 80 (74 to 106) mg/dL Calcium 9.1 (8.4-10.2) mg/dL Magnesium 1.3 L (1.6-2.3) mg/dL Total Bilirubin 0.50 (0.2-1.3) mg/dL AST 24 (17-59) U/L ALT 22 (0-50) U/L Alkaline Phosphatase 39 (38-126) U/L Troponin I < 0.012 (0.000-0.034) ng/mL Serum Total Protein 6.6 (6.3-8.2) g/dL Albumin 4.5 (3.5-5.0) g/dL Urine Color (YELLOW) Urine Appearance (CLEAR) Urine pH (5-6) Ur Specific [place] (1.005-1.025) Urine Protein (Negative) Urine Ketones (NEGATIVE) Urine Blood (0-5) Wes/ul Urine Nitrite (NEGATIVE) Urine Bilirubin (NEGATIVE) Urine Urobilinogen (0-1) mg/dL Ur Leukocyte Esterase (NEGATIVE) Urine WBC (Auto) (0-5) /HPF Urine RBC (Auto) (0-2) /HPF U Epithel Cells (Auto) (FEW) /HPF Urine Bacteria (Auto) (NEGATIVE) /HPF Urine Culture Reflexed (NO) Urine Glucose (NEGATIVE) mg/dL Salicylates < 1.0 L (2-20) mg/dL Urine Opiates Level (NEGATIVE) Ur Methadone (NEGATIVE) Acetaminophen < 10 L (10-30) ug/ml Urine Barbiturates (NEGATIVE) Ur Phencyclidine (PCP) (NEGATIVE) Urine Amphetamine (NEGATIVE) U Benzodiazepine Level (NEGATIVE) Urine Cocaine (NEGATIVE) Urine Marijuana (THC) (NEGATIVE) Ethyl Alcohol < 10 (0-10) mg/dL Influenza Type A Ag (NEGATIVE) Influenza Type B Ag (NEGATIVE) RSV (PCR) (Negative) SARS-CoV-2 (PCR) (NEGATIVE) 05/31/21 05/31/21 05/31/21 Range/Units 13:03 13:03 13:17 WBC (4.0-10.5) K/mm3 RBC (4.1-5.6) M/mm3 Hgb (12.5-18.0) gm/dl Hct (42-50) % MCV (78-100) fl MCH (26-32) pg MCHC (32-36) g/dl RDW (11.5-14.0) % Plt Count (150-450) K/mm3 MPV (7.5-11.0) fl Gran % (36.0-66.0) % Eos # (Auto) (0-0.5) Absolute Lymphs (auto) (1.0-4.6) Absolute Monos (auto) (0.0-1.3) Lymphocytes % (24.0-44.0) % Monocytes % (0.0-12.0) % Eosinophils % (0.00-5.0) % Basophils % (0.0-0.4) % Absolute Granulocytes (1.4-6.9) Basophils # (0-0.4) Sodium (137-145) mmol/L Potassium (3.5-5.1) mmol/L Chloride (98-107) mmol/L Carbon Dioxide (22-30) mmol/L Anion Gap (5-15) MEQ/L BUN (9-20) mg/dL Creatinine (0.66-1.25) mg/dL Estimated GFR ML/MIN Glucose (74-106) mg/dL POC Glucometer (74 to 106) mg/dL Calcium (8.4-10.2) mg/dL Magnesium (1.6-2.3) mg/dL Total Bilirubin (0.2-1.3) mg/dL AST (17-59) U/L ALT (0-50) U/L Alkaline Phosphatase (38-126) U/L Troponin I (0.000-0.034) ng/mL Serum Total Protein (6.3-8.2) g/dL Albumin (3.5-5.0) g/dL Urine Color STRAW (YELLOW) Urine Appearance CLEAR (CLEAR) Urine pH 6.0 (5-6) Ur Specific [place] 1.005 (1.005-1.025) Urine Protein NEGATIVE (Negative) Urine Ketones TRACE (NEGATIVE) Urine Blood NEGATIVE (0-5) Wes/ul Urine Nitrite NEGATIVE (NEGATIVE) Urine Bilirubin NEGATIVE (NEGATIVE) Urine Urobilinogen NEGATIVE (0-1) mg/dL Ur Leukocyte Esterase NEGATIVE (NEGATIVE) Urine WBC (Auto) 3-5 (0-5) /HPF Urine RBC (Auto) NONE (0-2) /HPF U Epithel Cells (Auto) NONE (FEW) /HPF Urine Bacteria (Auto) NONE (NEGATIVE) /HPF Urine Culture Reflexed NO (NO) Urine Glucose NEGATIVE (NEGATIVE) mg/dL Salicylates (2-20) mg/dL Urine Opiates Level NEGATIVE (NEGATIVE) Ur Methadone NEGATIVE (NEGATIVE) Acetaminophen (10-30) ug/ml Urine Barbiturates NEGATIVE (NEGATIVE) Ur Phencyclidine (PCP) NEGATIVE (NEGATIVE) Urine Amphetamine NEGATIVE (NEGATIVE) U Benzodiazepine Level NEGATIVE (NEGATIVE) Urine Cocaine NEGATIVE (NEGATIVE) Urine Marijuana (THC) NEGATIVE (NEGATIVE) Ethyl Alcohol (0-10) mg/dL Influenza Type A Ag NEGATIVE (NEGATIVE) Influenza Type B Ag NEGATIVE (NEGATIVE) RSV (PCR) NEGATIVE (Negative) SARS-CoV-2 (PCR) NEGATIVE (NEGATIVE) 05/31/21 05/31/21 05/31/21 Range/Units 13:25 14:10 16:09 WBC (4.0-10.5) K/mm3 RBC (4.1-5.6) M/mm3 Hgb (12.5-18.0) gm/dl Hct (42-50) % MCV (78-100) fl MCH (26-32) pg MCHC (32-36) g/dl RDW (11.5-14.0) % Plt Count (150-450) K/mm3 MPV (7.5-11.0) fl Gran % (36.0-66.0) % Eos # (Auto) (0-0.5) Absolute Lymphs (auto) (1.0-4.6) Absolute Monos (auto) (0.0-1.3) Lymphocytes % (24.0-44.0) % Monocytes % (0.0-12.0) % Eosinophils % (0.00-5.0) % Basophils % (0.0-0.4) % Absolute Granulocytes (1.4-6.9) Basophils # (0-0.4) Sodium (137-145) mmol/L Potassium (3.5-5.1) mmol/L Chloride (98-107) mmol/L Carbon Dioxide (22-30) mmol/L Anion Gap (5-15) MEQ/L BUN (9-20) mg/dL Creatinine (0.66-1.25) mg/dL Estimated GFR ML/MIN Glucose (74-106) mg/dL POC Glucometer 84 143 H (74 to 106) mg/dL Calcium (8.4-10.2) mg/dL Magnesium (1.6-2.3) mg/dL Total Bilirubin (0.2-1.3) mg/dL AST (17-59) U/L ALT (0-50) U/L Alkaline Phosphatase (38-126) U/L Troponin I < 0.012 (0.000-0.034) ng/mL Serum Total Protein (6.3-8.2) g/dL Albumin (3.5-5.0) g/dL Urine Color (YELLOW) Urine Appearance (CLEAR) Urine pH (5-6) Ur Specific [place] (1.005-1.025) Urine Protein (Negative) Urine Ketones (NEGATIVE) Urine Blood (0-5) Wes/ul Urine Nitrite (NEGATIVE) Urine Bilirubin (NEGATIVE) Urine Urobilinogen (0-1) mg/dL Ur Leukocyte Esterase (NEGATIVE) Urine WBC (Auto) (0-5) /HPF Urine RBC (Auto) (0-2) /HPF U Epithel Cells (Auto) (FEW) /HPF Urine Bacteria (Auto) (NEGATIVE) /HPF Urine Culture Reflexed (NO) Urine Glucose (NEGATIVE) mg/dL Salicylates (2-20) mg/dL Urine Opiates Level (NEGATIVE) Ur Methadone (NEGATIVE) Acetaminophen (10-30) ug/ml Urine Barbiturates (NEGATIVE) Ur Phencyclidine (PCP) (NEGATIVE) Urine Amphetamine (NEGATIVE) U Benzodiazepine Level (NEGATIVE) Urine Cocaine (NEGATIVE) Urine Marijuana (THC) (NEGATIVE) Ethyl Alcohol (0-10) mg/dL Influenza Type A Ag (NEGATIVE) Influenza Type B Ag (NEGATIVE) RSV (PCR) (Negative) SARS-CoV-2 (PCR) (NEGATIVE) 05/31/21 05/31/21 05/31/21 Range/Units 17:29 20:30 20:48 WBC (4.0-10.5) K/mm3 RBC (4.1-5.6) M/mm3 Hgb (12.5-18.0) gm/dl Hct (42-50) % MCV (78-100) fl MCH (26-32) pg MCHC (32-36) g/dl RDW (11.5-14.0) % Plt Count (150-450) K/mm3 MPV (7.5-11.0) fl Gran % (36.0-66.0) % Eos # (Auto) (0-0.5) Absolute Lymphs (auto) (1.0-4.6) Absolute Monos (auto) (0.0-1.3) Lymphocytes % (24.0-44.0) % Monocytes % (0.0-12.0) % Eosinophils % (0.00-5.0) % Basophils % (0.0-0.4) % Absolute Granulocytes (1.4-6.9) Basophils # (0-0.4) Sodium (137-145) mmol/L Potassium (3.5-5.1) mmol/L Chloride (98-107) mmol/L Carbon Dioxide (22-30) mmol/L Anion Gap (5-15) MEQ/L BUN (9-20) mg/dL Creatinine (0.66-1.25) mg/dL Estimated GFR ML/MIN Glucose (74-106) mg/dL POC Glucometer 159 H (74 to 106) mg/dL Calcium (8.4-10.2) mg/dL Magnesium (1.6-2.3) mg/dL Total Bilirubin (0.2-1.3) mg/dL AST (17-59) U/L ALT (0-50) U/L Alkaline Phosphatase (38-126) U/L Troponin I < 0.012 < 0.012 (0.000-0.034) ng/mL Serum Total Protein (6.3-8.2) g/dL Albumin (3.5-5.0) g/dL Urine Color (YELLOW) Urine Appearance (CLEAR) Urine pH (5-6) Ur Specific [place] (1.005-1.025) Urine Protein (Negative) Urine Ketones (NEGATIVE) Urine Blood (0-5) Wes/ul Urine Nitrite (NEGATIVE) Urine Bilirubin (NEGATIVE) Urine Urobilinogen (0-1) mg/dL Ur Leukocyte Esterase (NEGATIVE) Urine WBC (Auto) (0-5) /HPF Urine RBC (Auto) (0-2) /HPF U Epithel Cells (Auto) (FEW) /HPF Urine Bacteria (Auto) (NEGATIVE) /HPF Urine Culture Reflexed (NO) Urine Glucose (NEGATIVE) mg/dL Salicylates (2-20) mg/dL Urine Opiates Level (NEGATIVE) Ur Methadone (NEGATIVE) Acetaminophen (10-30) ug/ml Urine Barbiturates (NEGATIVE) Ur Phencyclidine (PCP) (NEGATIVE) Urine Amphetamine (NEGATIVE) U Benzodiazepine Level (NEGATIVE) Urine Cocaine (NEGATIVE) Urine Marijuana (THC) (NEGATIVE) Ethyl Alcohol (0-10) mg/dL Influenza Type A Ag (NEGATIVE) Influenza Type B Ag (NEGATIVE) RSV (PCR) (Negative) SARS-CoV-2 (PCR) (NEGATIVE) 06/01/21 06/01/21 06/01/21 Range/Units 01:37 01:37 06:55 WBC 6.5 (4.0-10.5) K/mm3 RBC 3.81 L (4.1-5.6) M/mm3 Hgb 11.7 L (12.5-18.0) gm/dl Hct 33.7 L (42-50) % MCV 88.5 (78-100) fl MCH 30.7 (26-32) pg MCHC 34.7 (32-36) g/dl RDW 12.6 (11.5-14.0) % Plt Count 228 (150-450) K/mm3 MPV 8.9 (7.5-11.0) fl Gran % 44.8 (36.0-66.0) % Eos # (Auto) 0.18 (0-0.5) Absolute Lymphs (auto) 2.69 (1.0-4.6) Absolute Monos (auto) 0.72 (0.0-1.3) Lymphocytes % 41.1 (24.0-44.0) % Monocytes % 11.0 (0.0-12.0) % Eosinophils % 2.8 (0.00-5.0) % Basophils % 0.3 (0.0-0.4) % Absolute Granulocytes 2.93 (1.4-6.9) Basophils # 0.02 (0-0.4) Sodium 133 L (137-145) mmol/L Potassium 4.3 (3.5-5.1) mmol/L Chloride 101 (98-107) mmol/L Carbon Dioxide 22 (22-30) mmol/L Anion Gap 13.6 (5-15) MEQ/L BUN 7 L (9-20) mg/dL Creatinine 0.52 L (0.66-1.25) mg/dL Estimated GFR > 60.0 ML/MIN Glucose 82 (74-106) mg/dL POC Glucometer 115 H (74 to 106) mg/dL Calcium 8.3 L (8.4-10.2) mg/dL Magnesium (1.6-2.3) mg/dL Total Bilirubin 0.40 (0.2-1.3) mg/dL AST 22 (17-59) U/L ALT 19 (0-50) U/L Alkaline Phosphatase 35 L (38-126) U/L Troponin I (0.000-0.034) ng/mL Serum Total Protein 6.1 L (6.3-8.2) g/dL Albumin 3.9 (3.5-5.0) g/dL Urine Color (YELLOW) Urine Appearance (CLEAR) Urine pH (5-6) Ur Specific [place] (1.005-1.025) Urine Protein (Negative) Urine Ketones (NEGATIVE) Urine Blood (0-5) Wes/ul Urine Nitrite (NEGATIVE) Urine Bilirubin (NEGATIVE) Urine Urobilinogen (0-1) mg/dL Ur Leukocyte Esterase (NEGATIVE) Urine WBC (Auto) (0-5) /HPF Urine RBC (Auto) (0-2) /HPF U Epithel Cells (Auto) (FEW) /HPF Urine Bacteria (Auto) (NEGATIVE) /HPF Urine Culture Reflexed (NO) Urine Glucose (NEGATIVE) mg/dL Salicylates (2-20) mg/dL Urine Opiates Level (NEGATIVE) Ur Methadone (NEGATIVE) Acetaminophen (10-30) ug/ml Urine Barbiturates (NEGATIVE) Ur Phencyclidine (PCP) (NEGATIVE) Urine Amphetamine (NEGATIVE) U Benzodiazepine Level (NEGATIVE) Urine Cocaine (NEGATIVE) Urine Marijuana (THC) (NEGATIVE) Ethyl Alcohol (0-10) mg/dL Influenza Type A Ag (NEGATIVE) Influenza Type B Ag (NEGATIVE) RSV (PCR) (Negative) SARS-CoV-2 (PCR) (NEGATIVE) Micro Results-Entire Visit: Accuchecks Date 06/01/21 Date 05/31/21 Date 05/31/21 Time 06:55 Time 20:48 Time 11:29 - Radiology Exams Ordered Rad Exams-Entire Visit: Radiology Procedures Category Date Time Status CHEST 1 VIEW (PORTABLE) Stat Exams 05/31/21 11:20 Completed Discharge Exam General Appearance: no apparent distress, obese Neurologic Exam: alert, cooperative Respiratory Exam: normal breath sounds, lungs clear, No respiratory distress Cardiovascular Exam: regular rate/rhythm, normal heart sounds Gastrointestinal/Abdomen Exam: soft, No tenderness, No mass Extremity Exam: normal inspection, normal range of motion Skin Exam: normal color, warm, dry Final Diagnosis/Problem List - Final Discharge Diagnosis/Problem (1) Accidental overdose Current Visit: Yes Status: Acute Code(s): T50.901A - POISONING BY UNSP DRUG/MEDS/BIOL SUBST, ACCIDENTAL, INIT (2) Drug-induced hypoglycemia without coma Current Visit: Yes Status: Acute Code(s): E16.0 - DRUG-INDUCED HYPOGLYCEMIA WITHOUT COMA (3) Autism Current Visit: No Status: Acute Code(s): F84.0 - AUTISTIC DISORDER (4) Diabetes mellitus Current Visit: No Status: Acute Code(s): E11.9 - TYPE 2 DIABETES MELLITUS WITHOUT COMPLICATIONS - Discharge Disposition: Home, Self-Care Condition: Stable Prescriptions: Continue Enalapril Maleate 5 mg [Vasotec 5 MG] 40 mg PO DAILY Haloperidol 5 mg [Haldol 5 MG] 10 mg PO HS Bimatoprost 0.01% [Lumigan 0.01% 2.5 ml] 1 drop OP HS Gemfibrozil 600 mg [Lopid 600 mg] 600 mg PO BID Divalproex Sodium [Depakote ER] 2 tab PO HS Escitalopram Oxalate [Lexapro] 10 mg PO QAM Metformin HCl 850 mg [Glucophage 850 MG] 850 mg PO BID Lorazepam 1 mg [Ativan 1 MG] 1 mg PO TID Insulin Lispro [Humalog] 13 units SQ AC Tamsulosin HCl 0.4 mg [Flomax 0.4 MG] 0.4 mg PO HS Insulin Glargine,Hum.rec.anlog [Lantus] 35 unit SQ BID Benztropine Mesylate 1 mg PO BID Simvastatin [Zocor] 40 mg PO HS Tolterodine Tartrate 2 mg PO DAILY Demeclocycline HCl 300 mg PO BID haloperidoL [Haloperidol] 5 mg PO BID Doxepin HCl 50 mg PO HS Tolvaptan 1 tab PO DAILY Follow up with: ROLANDO GARZA [Primary Care Provider] - MILENA FOSTER [Family Provider] -
== END 2021-06-01 08:56 | disposition home or self-care (01) ==
LOC: ED 10:57 → MED SURG 15:07
PROVIDERS: ADMIT Family Medicine; ATTEND Family Medicine
DX: T43.4X1A Poisoning by butyrophenone and thiothixene neuroleptics, accidental (unintentional), initial encounter (principal); E16.0 Drug-induced hypoglycemia without coma; F84.0 Autistic disorder; E11.9 Type 2 diabetes mellitus without complications; I10 Essential (primary) hypertension; Z79.899 Other long term (current) drug therapy; Z20.828 Contact with and (suspected) exposure to other viral communicable diseases
CPT/HCPCS: 0241U; 36000; 36415; 71045; 80053; 80307; 81001; 82947; 83735; 84484; 85025; 93005; 93041; 96374; 99285; G0378; G0480; J3475

== ENCOUNTER 2022-11-13 16:51 | Emergency (ER) | payer MEDICARE, BC ==
--- NOTE | 2022-11-13 17:54 | ERPHSYRPT ---
- History of Present Illness Time Seen by Provider: 11/13/22 17:15 Source: patient, family Exam Limitations: other (Patient is severely autistic) Patient Subjective Stated Complaint: Pts mother reports pt did not want to get out of bed today, was dragging his right leg, and holding his back. Triage Nursing Assessment: Pt alert and oriented x3. No apparent respiratory distress. Ambulated without difficulty, steady gait noted. Skin w/p/d. He also had silva discoloration around waistband line and redness to bilateral lower forearms extending to wrists. Physician History: Patient is a 47-year-old severely autistic white male who presents with lower back pain. Mother reports that he awoke this morning holding his back and dragging his right leg. She also noticed swelling and redness of the hands and a rose raised rash which matched the elastic band in his underwear. Timing/Duration: today Severity: mild Allergies/Adverse Reactions: Sulfa (Sulfonamide Antibiotics) Allergy (Mild, Verified 05/28/21 20:07) Hives bee venom protein (honey bee) Allergy (Verified 05/28/21 20:07) Home Medications: Bimatoprost 0.01% [Lumigan 0.01% 2.5 ml] 1 drop OP HS 11/03/13 [History] Divalproex Sodium [Depakote ER] 2 tab PO HS 11/03/13 [History] Enalapril Maleate 5 mg [Vasotec 5 MG] 40 mg PO DAILY 11/03/13 [History] Escitalopram Oxalate [Lexapro] 10 mg PO QAM 11/03/13 [History] Gemfibrozil [Lopid] 600 mg PO BID 11/03/13 [History] Haloperidol [Haldol] 10 mg PO HS 11/03/13 [History] Insulin Lispro [Humalog] 13 units SQ AC 11/03/13 [History] Lorazepam 1 mg [Ativan 1 MG] 1 mg PO TID 11/03/13 [History] Metformin HCl 850 mg [Glucophage 850 MG] 850 mg PO BID 11/03/13 [History] Benztropine Mesylate 1 mg PO BID 08/13/18 [History] Insulin Glargine,Hum.rec.anlog [Lantus] 35 unit SQ BID 08/13/18 [History] Simvastatin [Zocor] 40 mg PO HS 08/13/18 [History] Tamsulosin HCl 0.4 mg [Flomax 0.4 MG] 0.4 mg PO HS 08/13/18 [History] Tolterodine Tartrate 2 mg PO DAILY 08/13/18 [History] Demeclocycline HCl 300 mg PO BID 05/28/21 [History] Doxepin HCl 50 mg PO HS 05/28/21 [History] haloperidoL [Haloperidol] 5 mg PO BID 05/28/21 [History] Tolvaptan 1 tab PO DAILY 05/31/21 [History] Hx Tetanus, Diphtheria Vaccination/Date Given: No Hx Influenza Vaccination/Date Given: No Hx Pneumococcal Vaccination/Date Given: No Travel Risk - International Travel Have you traveled outside of the country in past 3 weeks: No - Coronavirus Screening Are you exhibiting any of the following symptoms?: No Close contact with a COVID-19 positive Pt in past 14-21 Days: No - Vaccine Status Have you recieved a Covid-19 vaccination: Yes Travel Registered Nurse Oncology: Moderna - Vaccination Dates Date of 2cond Vaccination (if applicable): 09/11/20 - Review of Systems All Other Systems: Unable due to condition - Past Medical History Pertinent Past Medical History: Yes Neurological History: Other ENT History: Glaucoma Cardiac History: Hypertension Respiratory History: Sleep Apnea Endocrine Medical History: Diabetes Type II Musculoskeletal History: No Pertinent History GI Medical History: No Pertinent History History: No Pertinent History Psycho-Social History: Other Male Reproductive Disorders: No Pertinent History Other Medical History: AUTISM - Past Surgical History Past Surgical History: Yes Neuro Surgical History: No Pertinent History Cardiac: No Pertinent History Respiratory: No Pertinent History Gastrointestinal: No Pertinent History Genitourinary: No Pertinent History Musculoskeletal: No Pertinent History Male Surgical History: No Pertinent History Other Surgical History: TONSILECTOMY. tip of finger removed right hand. cyst removed from behind left knee - Social History Smoking Status: Never smoker Exposure to second hand smoke: No Drug Use: none Patient Lives Alone: No - Nursing Vital Signs Nursing Vital Signs: Initial Vital Signs Temperature 97.6 F 11/13/22 17:10 Pulse Rate 85 11/13/22 17:10 Respiratory Rate 19 11/13/22 17:10 Blood Pressure 141/90 11/13/22 17:10 O2 Sat by Pulse Oximetry 98 11/13/22 17:10 - Physical Exam General Appearance: no apparent distress Eye Exam: PERRL/EOMI, eyes nml inspection Ears, Nose, Throat Exam: normal ENT inspection, TMs normal, pharynx normal, moist mucous membranes Neck Exam: normal inspection, non-tender, supple, full range of motion Respiratory Exam: normal breath sounds, lungs clear, No respiratory distress Cardiovascular Exam: regular rate/rhythm, normal heart sounds, normal peripheral pulses Gastrointestinal/Abdomen Exam: soft, normal bowel sounds, No tenderness, No mass Back Exam: normal inspection, normal range of motion, No CVA tenderness, No vertebral tenderness Extremity Exam: normal inspection, normal range of motion, pelvis stable Neurologic Exam: alert, cooperative, other (Autistic) Skin Exam: rash (Rash on the hands and on the abdomen at the belt line.) SpO2 Interpretation: normal SpO2: 98 O2 Delivery: Room Air - Course Nursing assessment & vital signs reviewed: Yes - Radiology Exams L-Spine X-ray Interpretation: Interpreted by me (There are bone spurs noted some degenerative changes but does preserved no acute fractures or dislocations) Femur X-ray Interpretation: Interpreted by me (No abnormalities noted) Ordered Tests: Active Orders 24 hr Category Date Time Status FEMUR Stat Exams 11/13/22 17:34 Ordered LUMBAR LIMITED (2 OR 3 VIEWS) Stat Exams 11/13/22 17:12 Taken UA W/RFX UR CULTURE Stat Lab 11/13/22 17:12 Ordered - Progress Progress: unchanged Medical Desision Making - Independent Historian Additional History obtained from: Mother - Diagnostic Testing Diagnostic test were ordered, analyzed, and reviewed by me: Yes Radiological Interpretation: Interpreted by me - Risk of complications Low Risk: Low risk of morbidity from additional dx testing or treatment - Departure Departure Disposition: Home Clinical Impression: Sciatica, Contact dermatitis Condition: Stable Critical Care Time: No Referrals: ROLANDO GARZA [Primary Care Provider] - Follow up/PCP as directed Instructions: Contact Dermatitis (DC), Sciatica (DC) Prescriptions: Prednisone 10 mg [Deltasone 10 mg] 10 mg PO TID 4 Days #12 tablet Triamcinolone 0.1% Lotion [Kenalog 0.1% Lotion] 60 ml TP BID 10 Days #30 ml
[2022-11-13 18:06] VITALS: BP 132/77; PULSE 77; O2SAT 97
[2022-11-13 18:29] LABS: Appearance Clear (Clear); Bacteria None Seen /HPF (None Seen); Bilirubin Negative (Negative); Blood Negative (Negative); Epithelial Cells None Seen /HPF (None Seen); Glucose, Urine Negative (Negative); Hyaline Casts NONE SEEN /LPF (0-2); Ketones Negative (Negative); Leukocyte Esterase Negative (Negative); Nitrite Negative (Negative); Protein,Urine Dip Negative (Negative); RBC 0-2 /HPF (0-5); Specific Gravity <=1.005 (1.005-1.030); Urobilinogen 0.2 mg/dL (0.2); WBC 0-2 /HPF (0-5)
[2022-11-13 18:31] LABS: ADD URINE CULTURE? NO (NO)
--- NOTE | 2022-11-13 22:08 | XRAY ---
Indication: Hip pain. Comparison: None 2 view right femur demonstrates diffuse scattered vascular calcifications. No other bony, articular, or soft tissue abnormalities.
--- NOTE | 2022-11-13 22:08 | XRAY ---
Indication: Low back pain. Comparison: None 3 view lumbar spine demonstrates 5 lumbar segments in normal alignment with mild L4-L5 degenerative endplate spurring and minimal L4-L5 disc space narrowing. No other bony, articular, or soft tissue abnormalities.
== END 2022-11-13 18:27 | disposition home or self-care (01) ==
LOC: ED 16:51
DX: M54.31 Sciatica, right side (principal); L25.9 Unspecified contact dermatitis, unspecified cause; F84.0 Autistic disorder; I10 Essential (primary) hypertension; E11.9 Type 2 diabetes mellitus without complications; Z79.4 Long term (current) use of insulin; Z79.84 Long term (current) use of oral hypoglycemic drugs; Z79.899 Other long term (current) drug therapy
CPT/HCPCS: 72100; 73552; 81001; 99283

== ENCOUNTER 2024-03-15 13:23 | Emergency (ER) | payer MEDICARE, BC ==
--- NOTE | 2024-03-15 13:28 | ERPHSYRPT ---
- History of Present Illness Time Seen by Provider: 03/15/24 13:27 Source: patient, family Exam Limitations: no limitations Physician History: This is a 48-year-old white male patient who is autistic and not feeling well. Patient cannot verbalize how he is feeling. However the patient's mother is aware of changes in the patient's behavior and his face was red and he had a high blood sugar at home. Patient was given his long-acting and short acting injectable insulin at approximately 9-9 30 this morning prior to arrival. Patient's blood sugar on arrival is 290. Patient is unable to answer my questions with regard to headache, chest pain, shortness of breath and abdominal pain. Mother states he has had no nausea vomiting or diarrhea symptoms. Patient has history of insulin-dependent diabetes, anxiety, prostate issues, hyperlipidemia, sleep apnea and is on Depakote. Timing/Duration: today Severity: mild (To moderate) Associated Symptoms: other (Patient cannot answer these questions but the mother states that the patient has had no vomiting or diarrhea symptoms. There has bee n no fevers.), No vomiting, No abdominal pain, No shortness of breath, No chest pain Allergies/Adverse Reactions: Sulfa (Sulfonamide Antibiotics) Allergy (Mild, Verified 03/15/24 13:35) Hives bee venom protein (honey bee) Allergy (Verified 03/15/24 13:35) Home Medications: Divalproex Sodium [Depakote ER] 1,000 mg PO HS 11/03/13 [History] Enalapril Maleate 5 mg [Vasotec 5 MG] 40 mg PO DAILY 11/03/13 [History] Escitalopram Oxalate [Lexapro] 10 mg PO QAM 11/03/13 [History] Gemfibrozil [Lopid] 600 mg PO BID 11/03/13 [History] Haloperidol [Haldol] 5 mg PO QAM 11/03/13 [History] Insulin Lispro [Humalog] 15 units SQ TID 11/03/13 [History] Lorazepam 1 mg [Ativan 1 MG] 1 mg PO TID 11/03/13 [History] Benztropine Mesylate 1 mg PO BID 08/13/18 [History] Insulin Glargine,Hum.rec.anlog [Lantus] 37 unit SQ BID 08/13/18 [History] Simvastatin [Zocor] 40 mg PO HS 08/13/18 [History] Tamsulosin HCl 0.4 mg [Flomax 0.4 MG] 0.4 mg PO HS 08/13/18 [History] Doxepin HCl 50 mg PO HS 05/28/21 [History] haloperidoL [Haloperidol] 10 mg PO HS 05/28/21 [History] Tolvaptan 30 mg PO DAILY 05/31/21 [History] Bimatoprost 0.01% [Lumigan 0.01% 2.5 ml] 1 drop OP HS 03/15/24 [History] Potassium Chloride 10 meq PO DAILY 03/15/24 [History] Hx Tetanus, Diphtheria Vaccination/Date Given: No Hx Influenza Vaccination/Date Given: No Hx Pneumococcal Vaccination/Date Given: No Travel Risk - International Travel Have you traveled outside of the country in past 3 weeks: No - Emerging Infectious Disease Are you exhibiting symptoms associated with any current EIDs: No - Review of Systems Constitutional: No Symptoms Eyes: No Symptoms Ears, Nose, & Throat: No Symptoms Respiratory: No Symptoms Cardiac: No Symptoms Abdominal/Gastrointestinal: No Symptoms Genitourinary Symptoms: No Symptoms Musculoskeletal: No Symptoms Skin: No Symptoms Neurological: No Symptoms Psychological: No Symptoms Endocrine: No Symptoms Hematologic/Lymphatic: No Symptoms Immunological/Allergic: No Symptoms All Other Systems: Reviewed and Negative - Past Medical History Pertinent Past Medical History: Yes Neurological History: Other ENT History: Glaucoma Cardiac History: Hypertension Respiratory History: Sleep Apnea Endocrine Medical History: Diabetes Type II Musculoskeletal History: No Pertinent History GI Medical History: No Pertinent History History: No Pertinent History Psycho-Social History: Other Male Reproductive Disorders: No Pertinent History Other Medical History: AUTISM - Past Surgical History Past Surgical History: Yes Neuro Surgical History: No Pertinent History Cardiac: No Pertinent History Respiratory: No Pertinent History Gastrointestinal: No Pertinent History Genitourinary: No Pertinent History Musculoskeletal: No Pertinent History Male Surgical History: No Pertinent History Other Surgical History: TONSILECTOMY. tip of finger removed right hand. cyst removed from behind left knee - Social History Smoking Status: Never smoker Exposure to second hand smoke: No Drug Use: none Patient Lives Alone: No - Nursing Vital Signs Nursing Vital Signs: Initial Vital Signs Temperature 96.4 F 03/15/24 13:28 Pulse Rate 99 H 03/15/24 13:28 Blood Pressure 153/85 03/15/24 13:28 O2 Sat by Pulse Oximetry 98 03/15/24 13:28 Pain Scale Pain Intensity 0 - Physical Exam General Appearance: no apparent distress, alert, anxiety, obese Eye Exam: PERRL/EOMI, eyes nml inspection Ears, Nose, Throat Exam: normal ENT inspection, moist mucous membranes Neck Exam: normal inspection, non-tender, supple, full range of motion Respiratory Exam: normal breath sounds, lungs clear, airway intact, No chest tenderness, No respiratory distress Cardiovascular Exam: regular rate/rhythm, normal heart sounds, normal peripheral pulses Gastrointestinal/Abdomen Exam: soft, normal bowel sounds, No tenderness Rectal Exam: not done Back Exam: normal inspection, normal range of motion, No CVA tenderness, No vertebral tenderness Extremity Exam: normal inspection, normal range of motion, pelvis stable Neurologic Exam: alert, cooperative, craft worker II-XII nml as tested, sensation nml Skin Exam: normal color, warm, dry Lymphatic Exam: No adenopathy SpO2 Interpretation: normal O2 Delivery: Room Air - Course Nursing assessment & vital signs reviewed: Yes EKG Interpreted by Me: RATE (96), Sinus Rhythm, NORMAL AXIS, prolonged QT interval, NORMAL QRS (Order line), Other (No acute ischemic changes on today's twelve-lead EKG. QTc is 476.) Ordered Tests: Active Orders 24 hr Category Date Time Status [employer] STAT Care 03/15/24 13:58 Active EKG-ER Only STAT Care 03/15/24 13:57 Active IV Insertion STAT Care 03/15/24 13:57 Active Pulse Oximetry (ED) STAT Care 03/15/24 13:57 Active CHEST 1 VIEW (PORTABLE) Stat Exams 03/15/24 13:57 Completed CBC W DIFF Stat Lab 03/15/24 13:57 Completed CMP Stat Lab 03/15/24 13:57 Completed Lactic Acid Stat Lab 03/15/24 16:10 Completed Lactic Acid Urgent Lab 03/15/24 14:06 Completed MAGNESIUM Stat Lab 03/15/24 13:57 Completed MONO SCREEN Stat Lab 03/15/24 Completed POCT GLUCOSE Stat Lab 03/15/24 13:32 Completed POCT GLUCOSE Stat Lab 03/15/24 16:49 Completed UA W/RFX UR CULTURE Stat Lab 03/15/24 15:31 Completed Medication Summary Generic Name Dose Route Start Last Admin Trade Name Jorge PRN Reason Stop Dose Admin Sodium Chloride 1,000 mls @ 100 mls/hr 03/15/24 14:00 03/15/24 14:47 Sodium Chloride 0.9% 1000 Ml IV 04/14/24 13:59 100 mls/hr .Q10H MISHEL Administration Discontinued Medications Generic Name Dose Route Start Last Admin Trade Name Jorge PRN Reason Stop Dose Admin Lactated Ringer's 1,000 mls @ 999 mls/hr 03/15/24 16:00 03/15/24 16:38 Lactated Ringers IV 03/15/24 17:00 999 mls/hr .Q1H1M ONE Administration Lactated Ringer's Confirm 03/15/24 16:25 Lactated Ringers Administered 03/15/24 16:26 Dose 1,000 mls @ ud IV .STK-MED ONE Insulin Human Regular 6 unit 03/15/24 15:05 03/15/24 15:53 Insulin Regular, Human 1 Unit IV 03/15/24 15:06 6 unit STAT ONE Administration Insulin Human Regular Confirm 03/15/24 15:52 Insulin Regular, Human 1 Unit Administered 03/15/24 15:53 Dose 6 unit .ROUTE .STK-MED ONE Lab/Rad Data: Laboratory Result Diagrams 03/15/24 13:57 03/15/24 13:57 Laboratory Results 03/15/24 03/15/24 03/15/24 Range/Units Unknown Unknown Unknown WBC (4.23-9.07) x10^3/uL RBC (4.63-6.08) x10^6/uL Hgb (13.7-17.5) g/dL Hct (40.1-51.0) % MCV (79.0-92.2) fL MCH (25.7-32.2) pg MCHC (32.3-36.5) g/dL RDW (11.6-14.4) % Plt Count (163-337) x10^3/uL MPV (9.4-12.4) fL Gran % (34.0-67.9) % Immature Gran % (Auto) (0.001-0.429) % Nucleat RBC Rel Count (0.00-0.2) % Eos # (Auto) (0.04-0.54) x10^3/uL Immature Gran # (Auto) (0.001-0.031) x10^3u/L Absolute Lymphs (auto) (1.32-3.57) x10^3/uL Absolute Monos (auto) (0.30-0.82) x10^3/uL Absolute Nucleated RBC (0.00-0.012) x10^3u/L Lymphocytes % (21.8-53.1) % Monocytes % (5.3-12.2) % Eosinophils % (0.8-7.0) % Basophils % (0.2-1.2) % Absolute Granulocytes (1.78-5.38) x10^3/uL Basophils # (0.01-0.08) x10^3/uL Sodium (135-145) mmol/L Potassium (3.5-5.1) mmol/L Chloride (98-107) mmol/L Carbon Dioxide (22-30) mmol/L Anion Gap (5-15) MEQ/L BUN (9-20) mg/dL Creatinine (0.66-1.25) mg/dL Estimated GFR ML/MIN Glucose (74-106) mg/dL POC Glucometer (74 to 106) mg/dL Lactic Acid (0.4-2.0) Calcium (8.4-10.2) mg/dL Magnesium (1.6-2.3) mg/dL Total Bilirubin (0.2-1.3) mg/dL AST (17-59) U/L ALT (0-50) U/L Alkaline Phosphatase (38-126) U/L Serum Total Protein (6.3-8.2) g/dL Albumin (3.5-5.0) g/dL Urine Color (Yellow) Urine Appearance (Clear) Urine pH (4.6-8.0) Ur Specific [place] (1.005-1.030) Urine Protein (Negative) Urine Glucose (UA) (Negative) mg/dL Urine Ketones (Negative) Urine Blood (Negative) Urine Nitrite (Negative) Urine Bilirubin (Negative) Urine Urobilinogen (0.2) mg/dL Ur Leukocyte Esterase (Negative) U Hyaline Cast (Auto) (0-2) /LPF Urine Microscopic RBC (0-5) /HPF Urine Microscopic WBC (0-5) /HPF Ur Epithelial Cells (None Seen) /HPF Urine Bacteria (None Seen) /HPF Urine Culture Reflexed (NO) Valproic Acid 55.6 (50-100) ug/mL Monoscreen NEGATIVE (NEGATIVE) Influenza Type A Ag NEGATIVE (NEGATIVE) Influenza Type B Ag NEGATIVE (NEGATIVE) RSV (PCR) NEGATIVE (NEGATIVE) SARS-CoV-2 (PCR) NEGATIVE (NEGATIVE) Group A Strep Antibody (NEGATIVE) 03/15/24 03/15/24 03/15/24 Range/Units 16:49 16:10 15:31 WBC (4.23-9.07) x10^3/uL RBC (4.63-6.08) x10^6/uL Hgb (13.7-17.5) g/dL Hct (40.1-51.0) % MCV (79.0-92.2) fL MCH (25.7-32.2) pg MCHC (32.3-36.5) g/dL RDW (11.6-14.4) % Plt Count (163-337) x10^3/uL MPV (9.4-12.4) fL Gran % (34.0-67.9) % Immature Gran % (Auto) (0.001-0.429) % Nucleat RBC Rel Count (0.00-0.2) % Eos # (Auto) (0.04-0.54) x10^3/uL Immature Gran # (Auto) (0.001-0.031) x10^3u/L Absolute Lymphs (auto) (1.32-3.57) x10^3/uL Absolute Monos (auto) (0.30-0.82) x10^3/uL Absolute Nucleated RBC (0.00-0.012) x10^3u/L Lymphocytes % (21.8-53.1) % Monocytes % (5.3-12.2) % Eosinophils % (0.8-7.0) % Basophils % (0.2-1.2) % Absolute Granulocytes (1.78-5.38) x10^3/uL Basophils # (0.01-0.08) x10^3/uL Sodium (135-145) mmol/L Potassium (3.5-5.1) mmol/L Chloride (98-107) mmol/L Carbon Dioxide (22-30) mmol/L Anion Gap (5-15) MEQ/L BUN (9-20) mg/dL Creatinine (0.66-1.25) mg/dL Estimated GFR ML/MIN Glucose (74-106) mg/dL POC Glucometer 179 H (74 to 106) mg/dL Lactic Acid 1.8 (0.4-2.0) Calcium (8.4-10.2) mg/dL Magnesium (1.6-2.3) mg/dL Total Bilirubin (0.2-1.3) mg/dL AST (17-59) U/L ALT (0-50) U/L Alkaline Phosphatase (38-126) U/L Serum Total Protein (6.3-8.2) g/dL Albumin (3.5-5.0) g/dL Urine Color Yellow (Yellow) Urine Appearance Clear (Clear) Urine pH 6.5 (4.6-8.0) Ur Specific [place] 1.010 (1.005-1.030) Urine Protein Negative (Negative) Urine Glucose (UA) >=1000 A (Negative) mg/dL Urine Ketones Negative (Negative) Urine Blood Negative (Negative) Urine Nitrite Negative (Negative) Urine Bilirubin Negative (Negative) Urine Urobilinogen 0.2 (0.2) mg/dL Ur Leukocyte Esterase Negative (Negative) U Hyaline Cast (Auto) NONE SEEN (0-2) /LPF Urine Microscopic RBC 0-2 (0-5) /HPF Urine Microscopic WBC 0-2 (0-5) /HPF Ur Epithelial Cells None Seen (None Seen) /HPF Urine Bacteria None Seen (None Seen) /HPF Urine Culture Reflexed NO (NO) Valproic Acid (50-100) ug/mL Monoscreen (NEGATIVE) Influenza Type A Ag (NEGATIVE) Influenza Type B Ag (NEGATIVE) RSV (PCR) (NEGATIVE) SARS-CoV-2 (PCR) (NEGATIVE) Group A Strep Antibody (NEGATIVE) 03/15/24 03/15/24 03/15/24 Range/Units 14:06 13:57 13:57 WBC (4.23-9.07) x10^3/uL RBC (4.63-6.08) x10^6/uL Hgb (13.7-17.5) g/dL Hct (40.1-51.0) % MCV (79.0-92.2) fL MCH (25.7-32.2) pg MCHC (32.3-36.5) g/dL RDW (11.6-14.4) % Plt Count (163-337) x10^3/uL MPV (9.4-12.4) fL Gran % (34.0-67.9) % Immature Gran % (Auto) (0.001-0.429) % Nucleat RBC Rel Count (0.00-0.2) % Eos # (Auto) (0.04-0.54) x10^3/uL Immature Gran # (Auto) (0.001-0.031) x10^3u/L Absolute Lymphs (auto) (1.32-3.57) x10^3/uL Absolute Monos (auto) (0.30-0.82) x10^3/uL Absolute Nucleated RBC (0.00-0.012) x10^3u/L Lymphocytes % (21.8-53.1) % Monocytes % (5.3-12.2) % Eosinophils % (0.8-7.0) % Basophils % (0.2-1.2) % Absolute Granulocytes (1.78-5.38) x10^3/uL Basophils # (0.01-0.08) x10^3/uL Sodium 139 (135-145) mmol/L Potassium 4.7 (3.5-5.1) mmol/L Chloride 104 (98-107) mmol/L Carbon Dioxide 22 (22-30) mmol/L Anion Gap 17.4 H (5-15) MEQ/L BUN 6 L (9-20) mg/dL Creatinine 0.52 L (0.66-1.25) mg/dL Estimated GFR 124.3 ML/MIN Glucose 337 H (74-106) mg/dL POC Glucometer (74 to 106) mg/dL Lactic Acid 4.1 H (0.4-2.0) Calcium 9.9 (8.4-10.2) mg/dL Magnesium 2.0 (1.6-2.3) mg/dL Total Bilirubin 0.60 (0.2-1.3) mg/dL AST 33 (17-59) U/L ALT 41 (0-50) U/L Alkaline Phosphatase 32 L (38-126) U/L Serum Total Protein 7.1 (6.3-8.2) g/dL Albumin 4.6 (3.5-5.0) g/dL Urine Color (Yellow) Urine Appearance (Clear) Urine pH (4.6-8.0) Ur Specific [place] (1.005-1.030) Urine Protein (Negative) Urine Glucose (UA) (Negative) mg/dL Urine Ketones (Negative) Urine Blood (Negative) Urine Nitrite (Negative) Urine Bilirubin (Negative) Urine Urobilinogen (0.2) mg/dL Ur Leukocyte Esterase (Negative) U Hyaline Cast (Auto) (0-2) /LPF Urine Microscopic RBC (0-5) /HPF Urine Microscopic WBC (0-5) /HPF Ur Epithelial Cells (None Seen) /HPF Urine Bacteria (None Seen) /HPF Urine Culture Reflexed (NO) Valproic Acid (50-100) ug/mL Monoscreen (NEGATIVE) Influenza Type A Ag (NEGATIVE) Influenza Type B Ag (NEGATIVE) RSV (PCR) (NEGATIVE) SARS-CoV-2 (PCR) (NEGATIVE) Group A Strep Antibody NOT DETECTED (NEGATIVE) 03/15/24 03/15/24 Range/Units 13:57 13:32 WBC 6.4 (4.23-9.07) x10^3/uL RBC 4.45 L (4.63-6.08) x10^6/uL Hgb 13.9 (13.7-17.5) g/dL Hct 38.6 L (40.1-51.0) % MCV 86.7 (79.0-92.2) fL MCH 31.2 (25.7-32.2) pg MCHC 36.0 (32.3-36.5) g/dL RDW 12.4 (11.6-14.4) % Plt Count 274 (163-337) x10^3/uL MPV 9.7 (9.4-12.4) fL Gran % 47.5 (34.0-67.9) % Immature Gran % (Auto) 0.3 (0.001-0.429) % Nucleat RBC Rel Count 0.0 (0.00-0.2) % Eos # (Auto) 0.04 (0.04-0.54) x10^3/uL Immature Gran # (Auto) 0.02 (0.001-0.031) x10^3u/L Absolute Lymphs (auto) 2.49 (1.32-3.57) x10^3/uL Absolute Monos (auto) 0.74 (0.30-0.82) x10^3/uL Absolute Nucleated RBC 0.00 (0.00-0.012) x10^3u/L Lymphocytes % 39.2 (21.8-53.1) % Monocytes % 11.6 (5.3-12.2) % Eosinophils % 0.6 L (0.8-7.0) % Basophils % 0.8 (0.2-1.2) % Absolute Granulocytes 3.02 (1.78-5.38) x10^3/uL Basophils # 0.05 (0.01-0.08) x10^3/uL Sodium (135-145) mmol/L Potassium (3.5-5.1) mmol/L Chloride (98-107) mmol/L Carbon Dioxide (22-30) mmol/L Anion Gap (5-15) MEQ/L BUN (9-20) mg/dL Creatinine (0.66-1.25) mg/dL Estimated GFR ML/MIN Glucose (74-106) mg/dL POC Glucometer 290 H (74 to 106) mg/dL Lactic Acid (0.4-2.0) Calcium (8.4-10.2) mg/dL Magnesium (1.6-2.3) mg/dL Total Bilirubin (0.2-1.3) mg/dL AST (17-59) U/L ALT (0-50) U/L Alkaline Phosphatase (38-126) U/L Serum Total Protein (6.3-8.2) g/dL Albumin (3.5-5.0) g/dL Urine Color (Yellow) Urine Appearance (Clear) Urine pH (4.6-8.0) Ur Specific [place] (1.005-1.030) Urine Protein (Negative) Urine Glucose (UA) (Negative) mg/dL Urine Ketones (Negative) Urine Blood (Negative) Urine Nitrite (Negative) Urine Bilirubin (Negative) Urine Urobilinogen (0.2) mg/dL Ur Leukocyte Esterase (Negative) U Hyaline Cast (Auto) (0-2) /LPF Urine Microscopic RBC (0-5) /HPF Urine Microscopic WBC (0-5) /HPF Ur Epithelial Cells (None Seen) /HPF Urine Bacteria (None Seen) /HPF Urine Culture Reflexed (NO) Valproic Acid (50-100) ug/mL Monoscreen (NEGATIVE) Influenza Type A Ag (NEGATIVE) Influenza Type B Ag (NEGATIVE) RSV (PCR) (NEGATIVE) SARS-CoV-2 (PCR) (NEGATIVE) Group A Strep Antibody (NEGATIVE) - Progress Progress: improved, re-examined Progress Note: 03/15/24 14:25 My medical decision making of the assignment of moderate complexity to this patient's medical issue today is based on review of the patient's past medical history, review the patient's medication list, review of patient drug allergy list, history present illness and physical findings on examination. The workup in this patient includes placement of intravenous line, infusion of normal saline solution, CBC, CMP, urinalysis, viral swabs, monotest, group A strep test , we will check a Depakote level Differential diagnosis includes but is not limited to hyperglycemia DKA, electrolyte abnormalities, urinary tract infection, dehydration, viral illness 03/15/24 17:24 I interpreted the patient's laboratory data results. Based on the laboratory data results, the patient has hyperglycemia. He does not have ketones in his urine and his CO2 is normal and his anion gap is only slightly elevated. We did provide him with 1 L of normal saline solution infusion and 1 L of lactated ringer solution. He will be discharged to home. Counseled pt/family regarding: lab results, diagnosis, need for follow-up Medical Desision Making - Independent Historian Additional History obtained from: Mother - Diagnostic Testing Diagnostic test were ordered, analyzed, and reviewed by me: Yes - Risk of complications Low Risk: Low risk of morbidity from additional dx testing or treatment - Departure Departure Disposition: Home Clinical Impression: Hyperglycemia Condition: Stable Critical Care Time: No Referrals: ROLANDO GARZA [Primary Care Provider] - Follow up/PCP as directed Additional Instructions: Drink plenty of fluids before advancing diet. Monitor blood sugar closely. Call your primary prescribing provider tomorrow morning, 03/16/2024, to make arrangements for a follow-up appointment to be seen in the next 3 to 5 days.
[2024-03-15 13:35] VITALS: TEMP 96.4
--- NOTE | 2024-03-15 14:24 | XRAY ---
Indication: Flulike symptoms. Comparison: May 31, 2021 Portable apical lordotic chest again demonstrates normal heart, lungs, and bony thorax.
[2024-03-15 14:38] LABS: Absolute Neutrophil Ct (ANC) 3.02 x10^3/uL (1.78-5.38); BASOPHIL % 0.8 % (0.2-1.2); Basophil (Absolute #) 0.05 x10^3/uL (0.01-0.08); Eosinophil % 0.6 % (0.8-7.0); Eosinophil (Absolute #) 0.04 x10^3/uL (0.04-0.54); Hematocrit 38.6 % (40.1-51.0); Hemoglobin 13.9 g/dL (13.7-17.5); IMMATURE GRAN # 0.02 x10^3u/L (0.001-0.031); IMMATURE GRAN % 0.3 % (0.001-0.429); Lymphocyte (Absolute #) 2.49 x10^3/uL (1.32-3.57); Lymphocytes % 39.2 % (21.8-53.1); Mean Cell Volume 86.7 fL (79.0-92.2); Mean Corpuscular Hemoglobin 31.2 pg (25.7-32.2); Mean Platelet Volume 9.7 fL (9.4-12.4); Monocyte (Absolute #) 0.74 x10^3/uL (0.30-0.82); Monocytes % 11.6 % (5.3-12.2); Neutrophil % 47.5 % (34.0-67.9); Platelet Count 274 x10^3/uL (163-337); Red Blood Count 4.45 x10^6/uL (4.63-6.08); Red Cell Distribution Width 12.4 % (11.6-14.4); White Blood Count 6.4 x10^3/uL (4.23-9.07)
[2024-03-15] MEDS ORDERED: Sodium Chloride 0.9% 1000 ML 1,000 ML ONE (14:46)
[2024-03-15] MEDS: Sodium Chloride 0.9% 1000 ML 1,000 ML IV SCH (14:47)
[2024-03-15 14:55] LABS: ALBUMIN 4.6 g/dL (3.5-5.0); ANION GAP 17.4 MEQ/L (5-15); BILIRUBIN,TOTAL 0.6 mg/dL (0.2-1.3); Calcium 9.9 mg/dL (8.4-10.2); Creatinine 1 0.52 mg/dL (0.66-1.25); EST GLOMERULAR FILTRATION RATE 124.3 ML/MIN; Potassium 4.7 mmol/L (3.5-5.1); Total Protein 7.1 g/dL (6.3-8.2)
[2024-03-15 15:33] LABS: INFLUENZA A NEGATIVE (NEGATIVE); INFLUENZA B NEGATIVE (NEGATIVE); RESPIRATORY SYNCTIAL VIRUS NEGATIVE (NEGATIVE); SARS-CoV-2 Xpert Express NEGATIVE (NEGATIVE)
[2024-03-15] MEDS ORDERED: HUMULIN R ONE (15:52)
[2024-03-15] MEDS: HUMULIN R IV ONE (15:53)
[2024-03-15 16:16] LABS: Appearance Clear (Clear); Bacteria None Seen /HPF (None Seen); Bilirubin Negative (Negative); Blood Negative (Negative); Epithelial Cells None Seen /HPF (None Seen); Glucose, Urine >=1000 mg/dL (Negative); Hyaline Casts NONE SEEN /LPF (0-2); Ketones Negative (Negative); Leukocyte Esterase Negative (Negative); Nitrite Negative (Negative); Ph 6.5 (4.6-8.0); Protein,Urine Dip Negative (Negative); RBC 0-2 /HPF (0-5); Urobilinogen 0.2 mg/dL (0.2); WBC 0-2 /HPF (0-5)
[2024-03-15] MEDS ORDERED: Lactated Ringers 1,000 ML IV ONE (16:25)
[2024-03-15] MEDS: Lactated Ringers 1,000 ML IV ONE (16:38)
[2024-03-15 17:14] VITALS: BP 151/88; PULSE 87; RESP 17; O2SAT 97
== END 2024-03-15 17:46 | disposition home or self-care (01) ==
LOC: ED 13:23
DX: E11.65 Type 2 diabetes mellitus with hyperglycemia (principal); I10 Essential (primary) hypertension; E78.5 Hyperlipidemia, unspecified; Z79.4 Long term (current) use of insulin; Z79.899 Other long term (current) drug therapy
CPT/HCPCS: 0241U; 36415; 71045; 80053; 80164; 81001; 82947; 83605; 83735; 85025; 86308; 87651; 93005; 93041; 94760; 96374; 99284; J1815